=== PATIENT | male | born 1970 ===

== ENCOUNTER 2016-10-09 21:09 | Emergency (ER) | payer MEDICAID, OTHER ==
[~2016-10-09] VITALS: Ht 175.3 cm; Wt 90.0 kg
[~2016-10-09 21:09] MED LIST: AMLO10TA3 PO; ASPI325T32 PO; CLOP75TA28 PO; CYCL10TA9 PO; GABA300C PO; HYDR25TA4 PO; LIP40 PO; LISI40TA PO; METO100T3 PO; NITR0.4T6 SL; OXYC5TAB72 PO; PRAZ2CAP2 PO
[2016-10-09 21:17] VITALS: BP 202/104; PULSE 78; RESP 16; O2SAT 98
--- NOTE | 2016-10-09 21:51 | ED.REPORT ---
HPI-Extremity Problem Lower Date of Service Oct 09, 2016 ED Provider: Dr. Khadar Barfield D.O. A 46 year old male with a history of chronic lower back pain, hypertension, stroke, hyperlipidemia, and CAD s/p stent placement presents to the ED with a right ankle injury onset today. The patient slipped while holding a crab pot and dropped it on his foot. He fell onto his backside and reports lower back pain but denies hitting his head or losing consciousness. He was able to ambulate after the accident. Nursing Notes Stated Complaint: ANKLE PAIN Chief Complaint: Multiple Trauma/Fall Nursing Notes Reviewed: Yes Allergies: Coded Allergies: Sulfa (Sulfonamide Antibiotics) (Verified Allergy, Intermediate, Rash, ) Scheduled Amlodipine (Amlodipine) 10 Mg Tablet 10 MG PO ONCE Aspirin (Aspirin) 325 Mg Tabec 325 MG PO DAILY Atorvastatin (Lipitor) 40 Mg Tablet 40 MG PO HS Clopidogrel (Clopidogrel) 75 Mg Tablet 75 MG PO DAILY Gabapentin (Neurontin) 300 Mg Capsule 600 MG PO TID Hydrochlorothiazide (Hydrochlorothiazide) 25 Mg Tablet 12.5 MG PO DAILY Lisinopril (Lisinopril) 40 Mg Tablet 40 MG PO DAILY Metoprolol Tartrate (Metoprolol Tartrate) 100 Mg Tablet 50 MG PO BID Prazosin (Prazosin) 2 Mg Capsule 2 MG PO BID Scheduled PRN Cyclobenzaprine (Cyclobenzaprine) 10 Mg Tablet 10 MG PO TID PRN PRN Spasm oxyCODONE (oxyCODONE) 5 Mg Tablet 5 MG PO Q4H PRN PRN For Pain Miscellaneous Medications Nitroglycerin SL (Nitroglycerin SL) 0.4 Mg Tab.subl 0.4 MG SL General Time Seen by MD: 21:51 Chief Complaint Leg injury right Hx Obtained From: Patient Arrived By: Walk-in Onset Occurred: 5 - 8 hours ago Symptom Duration: Since onset Caused by: Accidental, Slipped Location: : Ankle right Quality: Painful Severity: Current: Moderate Severity: Maximum: Moderate Associated with: Denies: Fever, Loss of consciousness, Unable to walk Pertinent Negative: Relieved by nothing Immunizations: Unknown Recent Healthcare: No recent doctor visit Similar Sx Previous: No Past Medical History Past Medical History Notes: No blood thinners Chronic pain medication contract currently in place Past Medical History 1. Coronary artery disease. An acute lateral myocardial infarction in 2008. The patient had a PTCA to the occluded ramus. A stent placed and then a week later there was in-stent stenosis. He had a repeat PTCA and he has done fine ever since then with no major cardiac events up until this episode today. Ejection fraction at that time was 45%. Echocardiogram from February 07, 2011 showed LVH, EF 60% to 65%, unrevealing valves. Myocardial perfusion scan on September 27, 2010 showed a moderate-sized defect, fixed, mid-anterior wall without a reversible component. 2. Hypertension. 3. History of stroke. 4. Hyperlipidemia. 5. Cocaine use. 6. Left femur fracture with cindy placement. 7. Chronic lower back pain Past Surgical History Cardiac stents lower extremity surgery Family History Noncontributory Smoking History Former Smoker Social History The patient ahs history of cocaine abuse. He currently only uses THC. The patient was released from alf this morning (08/11/15) Alcohol Use: Denies alcohol use Drug Use: THC Other Social History: Local resident Ambulatory Status Independent Review of Systems Constitutional: Denies: Fever Musculoskeletal: Reports: Back pain (Lower), Joint pain (Right ankle) Neurologic: Denies: Change LOC, Headache, Problem walking Complete sys rev & neg: except as marked. Physical Exam Initial Vital Signs Vital Signs (First) Date Time Temp Pulse Resp B/P Pulse Ox O2 Delivery O2 Flow Rate FiO2 10/09/16 21:17 78 16 202/104 98 Room Air Initial VS: Reviewed Head / Eyes: Atraumatic, Normocephalic ENT: Conjunctiva normal, No scleral icterus Neck: Supple, Full range of motion Skin: Warm, Dry, No cyanosis Neurologic: Alert, Oriented, Nonfocal Psychiatric: Mood/affect normal, Behavior normal, Normal thought content Ankle / Foot: Full range of motion Right Ankle: Positive: Swelling present..., Tenderness present... (Laterally) General/Constitutional: Awake, Alert, No acute distress Interpretation & Diagnostics X-Ray Interpretation Xray Interpretation: No fracture Study Performed: 3 View X-Ray Ordered: Ankle right Interpretation / Wet Read by: Wet read ED physician Re-Eval/Medical Decision Med Decision/Clinical Course Mr. Rider was moderately hypertensive. He states this is from the pain. He is put in the ankle immobilizer and he felt better. Manual blood pressure came down 170 systolic. He will watch his blood pressure closely. Short course of opiates provided for pain and recommend close outpatient follow-up. He did not have any chest pain, shortness of breath, stroke symptoms or any signs or symptoms of malignant hypertension. Emergent lowering of asymptomatic high blood pressure not indicated Source of Hx: Old records Re-Evaluation/Progress : Time of Eval: 23:00 Patient Status: Condition improved Re-Evaluation/Progress Note: Discussed with patient x-ray results, diagnosis, and plan for discharge. Follow-up and return to the ER instructions given. Patient agrees with plan for care and all questions were addressed. Counseled Regarding: Diagnosis, Need for follow-up, When/why to return to ED Discharge & Departure Impression: Primary Impression: Ankle injury Encounter type: initial encounter Laterality: right Qualified Code: S99.911A - Unspecified injury of right ankle, initial encounter Disposition: Home Discharge Condition All VS Reviewed: Yes Condition: Stable Patient Instructions: Ankle Fracture (ED), Crutch Instructions (ED) Additional Instructions: I did not appreciate a fracture on your x-rays. An occult fracture may be present. Wear the side stirrup splint and use the crutches. Be nonweightbearing on your right ankle. You will follow up with your primary care physician in about a week. If the pain persists you will need to have repeat x-rays. Take 1-2 [place] every 6 hours as needed for severe pain. Do not drive or drink alcohol or consume acetaminophen while taking the [place]. Return if any problems or worsening symptoms. Referrals: Cristian Bennett DO (PCP) Matthieu Ballard MD Scribe Attestation Portions of this note were transcribed by Aparna Alex. I, Dr. Barfield, personally performed the history, physical exam, and medical decision-making; I reviewed and confirmed the accuracy of the information in the transcribed note. Signed by: Marybeth Leo, 10/10/2016, 00:44 copies to: Matthieu Ballard MD; Cristian Bennett Todd P DO Oct 09, 2016 21:51 APARNA ALEX Oct 09, 2016 21:56
[2016-10-09] MEDS ORDERED: _HYDROcodone/APAP 5-325 mg Tablet PO PRN (22:05)
[2016-10-09 23:45] VITALS: BP 193/125; PULSE 75; RESP 20; O2SAT 99
--- NOTE | 2016-10-10 09:06 | DRSVH ---
PROCEDURE: X-RAY RIGHT ANKLE, MINIMUM THREE VIEWS ([id number]) INDICATIONS: trauma TECHNIQUE: 3 views of the ankle were acquired. COMPARISON: None. FINDINGS: Bones: No fractures or dislocations. Ankle mortise is normally aligned. No suspicious bony lesions . Calcaneal spurring. Soft tissues: No tibiotalar joint effusion. Achilles tendon appears normal. Lateral malleolar soft tissue swelling. IMPRESSION: No displaced fracture seen. If there is continued pain, followup exam or additional dmitry ging such as MRI or CT could be performed for further assessment. Dictated by: Zaheer Philip Hemant Interpreted: Larissa Whittington MD on 10/10/2016 at 9:06 Transcribed by: HEIDY on 10/10/2016 at 9:06 Approved by: Larissa Whittington M.D. on 10/10/2016 at 16:10
== END 2016-10-10 00:07 ==
LOC: SED 21:09
DX: S99.911A Unspecified injury of right ankle, initial encounter (principal); W01.0XXA Fall on same level from slipping, tripping and stumbling without subsequent striking against object, initial encounter; W20.8XXA Other cause of strike by thrown, projected or falling object, initial encounter; Y92.814 Boat as the place of occurrence of the external cause; Y93.89 Activity, other specified; Y99.8 Other external cause status; M54.5 Low back pain; G89.29 Other chronic pain; I10 Essential (primary) hypertension; I25.10 Atherosclerotic heart disease of native coronary artery without angina pectoris; I25.2 Old myocardial infarction; E78.5 Hyperlipidemia, unspecified; Z86.73 Personal history of transient ischemic attack (TIA), and cerebral infarction without residual deficits; Z95.818 Presence of other cardiac implants and grafts; Z87.828 Personal history of other (healed) physical injury and trauma; Z87.891 Personal history of nicotine dependence; Z79.82 Long term (current) use of aspirin; Z88.2 Allergy status to sulfonamides

== ENCOUNTER 2016-10-26 01:06 | Emergency (ER) | payer MEDICAID, OTHER ==
[~2016-10-26] VITALS: Ht 175.3 cm; Wt 86.4 kg
[2016-10-26 01:09] VITALS: BP 192/104; PULSE 79; RESP 16; O2SAT 98
--- NOTE | 2016-10-26 01:25 | ED.REPORT ---
HPI-Extremity Problem Lower Date of Service Oct 26, 2016 ED Provider: Dr. Khadar Barfield D.O. A 46 year old male with a medical history including CAD, hypertension, and chronic back pain presents to the ED with a right ankle injury onset 2.5 weeks ago. The patient was boating when he dropped a crab pot on his ankle. The patient was seen in the ED at onset and was subsequently discharged with pain medication. His symptoms have not improved since. Nursing Notes Stated Complaint: RT ANKLE PAIN Chief Complaint: Extremity Trauma Nursing Notes Reviewed: Yes Allergies: Coded Allergies: Sulfa (Sulfonamide Antibiotics) (Verified Allergy, Intermediate, Rash, 10/26) Scheduled Amlodipine (Amlodipine) 10 Mg Tablet 10 MG PO ONCE Aspirin (Aspirin) 325 Mg Tabec 325 MG PO DAILY Atorvastatin (Lipitor) 40 Mg Tablet 40 MG PO HS Clopidogrel (Clopidogrel) 75 Mg Tablet 75 MG PO DAILY Gabapentin (Neurontin) 300 Mg Capsule 600 MG PO TID Hydrochlorothiazide (Hydrochlorothiazide) 25 Mg Tablet 12.5 MG PO DAILY Lisinopril (Lisinopril) 40 Mg Tablet 40 MG PO DAILY Metoprolol Tartrate (Metoprolol Tartrate) 100 Mg Tablet 50 MG PO BID Prazosin (Prazosin) 2 Mg Capsule 2 MG PO BID Scheduled PRN Cyclobenzaprine (Cyclobenzaprine) 10 Mg Tablet 10 MG PO TID PRN PRN Spasm oxyCODONE (oxyCODONE) 5 Mg Tablet 5 MG PO Q4H PRN PRN For Pain Miscellaneous Medications Nitroglycerin SL (Nitroglycerin SL) 0.4 Mg Tab.subl 0.4 MG SL General Time Seen by MD: 01:25 Chief Complaint Ankle injury right Hx Obtained From: Patient Arrived By: Walk-in Onset Occurred: More than a week ago... (2.5 weeks) Symptom Duration: Since onset Caused by: Accidental Location: : Ankle right Quality: Painful Severity: Current: Moderate Severity: Maximum: Moderate Associated with: Denies: Fever Pertinent Negative: Relieved by nothing Immunizations: Unknown Recent Healthcare: Recent doctor visit Similar Sx Previous: Yes Past Medical History Past Medical History Notes: No blood thinners Chronic pain medication contract currently in place Past Medical History 1. Coronary artery disease. An acute lateral myocardial infarction in 2008. The patient had a PTCA to the occluded ramus. A stent placed and then a week later there was in-stent stenosis. He had a repeat PTCA and he has done fine ever since then with no major cardiac events up until this episode today. Ejection fraction at that time was 45%. Echocardiogram from February 07, 2011 showed LVH, EF 60% to 65%, unrevealing valves. Myocardial perfusion scan on September 27, 2010 showed a moderate-sized defect, fixed, mid-anterior wall without a reversible component. 2. Hypertension. 3. History of stroke. 4. Hyperlipidemia. 5. Cocaine use. 6. Left femur fracture with cindy placement. 7. Chronic lower back pain Past Surgical History Cardiac stents lower extremity surgery Family History Noncontributory Smoking History Former Smoker Social History The patient has history of cocaine abuse. He currently only uses THC. The patient was released from senior living this morning (08/11/15) Alcohol Use: Denies alcohol use Drug Use: THC Other Social History: Local resident Ambulatory Status Independent Physical Exam Physical Exam Notes: Initial Vital Signs Vital Signs (First) Date Time Temp Pulse Resp B/P Pulse Ox O2 Delivery O2 Flow Rate FiO2 10/26/16 01:09 36.4 79 16 192/104 98 Room Air Initial VS: Reviewed Head / Eyes: Atraumatic, Normocephalic ENT: Conjunctiva normal, No scleral icterus Neck: Supple, Full range of motion Skin: Warm, Dry, No cyanosis Neurologic: Alert, Oriented, Nonfocal Psychiatric: Mood/affect normal, Behavior normal, Normal thought content Lower Extremity / Pelvis / MS: Non-tender, Neurologic intact, Vascular intact Ankle / Foot: Neurologic intact, Vascular intact (Strong DP and PT pulses) Right Ankle: Positive: Swelling present... (Soft tissue over lateral malleolus) , Tenderness present... Interpretation & Diagnostics X-Ray Interpretation Xray Interpretation: No fracture Study Performed: 3-View X-Ray Ordered: Ankle right Re-Eval/Medical Decision Med Decision/Clinical Course Mild soft tissue swelling over the lateral ankle with moderate tenderness. Repeat x-ray still did not show definitive fracture. I will place Mr. Rider in a cast boot and have him use crutches. He was given a 20 tablet prescription of Pomaria with the understanding that I could not refill this and that he needs to see primary care or orthopedics if he is having the need for ongoing pain control. He was given a dose of clonidine which brought his blood pressure down to what he thinks is his baseline. His high blood pressure is essentially asymptomatic. He tells me he can fill his medications tomorrow. I strongly recommend that he do that. Routine opiate warnings were given. Source of Hx: Old records Re-Evaluation/Progress : Time of Eval: 02:00 Patient Status: Condition improved Re-Evaluation/Progress Note: Discussed with patient x-ray results, diagnosis, and plan for discharge. Follow-up and return to the ER instructions given. Patient agrees with plan for care and all questions were addressed. Counseled Regarding: Diagnosis, Need for follow-up, When/why to return to ED Discharge & Departure Impression: Primary Impression: Ankle injury Encounter type: subsequent encounter Laterality: right Qualified Code: S99.911D - Unspecified injury of right ankle, subsequent encounter Additional Impression: High blood pressure Hypertension type: essential hypertension Hypertension goal: less than 130/ 85 Qualified Code: I10 - Essential (primary) hypertension Disposition: Home Discharge Condition All VS Reviewed: Yes Condition: Stable Patient Instructions: Ankle Sprain (ED), Chronic Hypertension (ED) Additional Instructions: Thank you for entrusting us with your care. Your x-ray was normal with no fracture. Wear the walking boot for the next week. Do not drink alcohol or drive tonight as you have been given sedating medication. 1-2 Pomaria every six hours as needed for pain. Do not drink alcohol, drive, or consume acetaminophen while taking Pomaria. I cannot refill these opiates so it is important you are seen in follow-up by primary care. Call your primary care provider or referral orthopedist on Sunday for a follow- up appointment. Your blood pressure is out of control. You need to get your medication filled tomorrow. Return to the ER with any new or worsening symptoms. Referrals: Cristian Bennett DO (PCP) Armani Hutson Attestation Portions of this note were transcribed by Aparna Alex. I, Dr. Barfield, personally performed the history, physical exam, and medical decision-making; I reviewed and confirmed the accuracy of the information in the transcribed note. Signed by: Marybeth Leo, 10/26/2016, 02:31 copies to: Armani Hutson DO; Cristian Bennett Todd P DO Oct 26, 2016 01:25 APARNA ALEX Oct 26, 2016 01:58
[2016-10-26] MEDS ORDERED: _HYDROcodone/APAP 5-325 mg Tablet PO PRN (01:35)
[2016-10-26] MEDS ORDERED: cloNIDine 0.1 mg Tablet PO ONE (01:35)
[2016-10-26 02:30] VITALS: BP 168/106; PULSE 76; RESP 18; O2SAT 98
[2016-10-26 02:39] VITALS: BP 168/106; PULSE 76; RESP 18; O2SAT 98
--- NOTE | 2016-10-26 10:01 | DRSVH ---
PROCEDURE: X-RAY RIGHT ANKLE, MINIMUM THREE VIEWS ([id number]) INDICATIONS: ankle injury, not improving, lateral swelling TECHNIQUE: 3 views of the ankle were acquired. COMPARISON: [facility], CR, XR ANKLE 3VW RT, 10/09/2016, 22:23. FINDINGS: Bones: No fractures or dislocations. Ankle mortise is normally aligned. No suspicious bony lesions . Calcaneal spurring. Soft tissues: No tibiotalar joint effusion. Achilles tendon appears normal. IMPRESSION: No definite radiographic abnormality. Dictated by: Zaheer Philip [facility] Interpreted: Leona Sewell MD on 10/26/2016 at 10:00 Transcribed by: GLEN on 10/26/2016 at 10:01 Approved by: Leona Sewell MD, PhD on 10/26/2016 at 16:25
== END 2016-10-26 02:40 | disposition home or self-care (01) ==
LOC: SED 01:06
DX: S99.911A Unspecified injury of right ankle, initial encounter (principal); W20.8XXA Other cause of strike by thrown, projected or falling object, initial encounter; Y92.814 Boat as the place of occurrence of the external cause; Y93.89 Activity, other specified; Y99.8 Other external cause status; I10 Essential (primary) hypertension; I25.10 Atherosclerotic heart disease of native coronary artery without angina pectoris; M54.9 Dorsalgia, unspecified; G89.29 Other chronic pain; I25.2 Old myocardial infarction; E78.5 Hyperlipidemia, unspecified; Z95.818 Presence of other cardiac implants and grafts; Z86.73 Personal history of transient ischemic attack (TIA), and cerebral infarction without residual deficits; Z87.891 Personal history of nicotine dependence; Z79.82 Long term (current) use of aspirin; Z88.2 Allergy status to sulfonamides

== ENCOUNTER 2016-11-07 00:45 | Inpatient (IN) | payer MEDICAID, OTHER ==
[2016-11-07] VITALS (14 sets, daily range): BP systolic 146–214; BP diastolic 91–128; PULSE 62–85; RESP 13–17; O2SAT 97–100
[~2016-11-07] VITALS: Ht 175.3 cm; Wt 86.5 kg
--- NOTE | 2016-11-07 01:05 | ED.REPORT ---
HPI-Chest Pain 40 and Over Date of Service Nov 07, 2016 ED Provider: Hebert Acharya MD Patient is a 46 year old male with a history of previous UT and stroke who presents to the ED complaining of left sided, intermittent chest tightness onset 3 days ago. Associated symptoms include nausea and vomiting last night and neck spasms. He denies SOB, diaphoresis, or any other symptoms. He has a history of back and neck spasms. Patient reports he has been out of his blood pressure medication for about 1 week. Nursing Notes Stated Complaint: CHEST PAIN/BACK PAIN Chief Complaint: Chest Pain Nursing Notes Reviewed: Yes Allergies: Coded Allergies: Sulfa (Sulfonamide Antibiotics) (Verified Allergy, Intermediate, Rash, ) Scheduled Amlodipine (Amlodipine) 10 Mg Tablet 10 MG PO ONCE Aspirin (Aspirin) 325 Mg Tabec 325 MG PO DAILY Atorvastatin (Lipitor) 40 Mg Tablet 40 MG PO HS Clopidogrel (Clopidogrel) 75 Mg Tablet 75 MG PO DAILY Gabapentin (Neurontin) 300 Mg Capsule 600 MG PO TID Hydrochlorothiazide (Hydrochlorothiazide) 25 Mg Tablet 12.5 MG PO DAILY Lisinopril (Lisinopril) 40 Mg Tablet 40 MG PO DAILY Metoprolol Tartrate (Metoprolol Tartrate) 100 Mg Tablet 50 MG PO BID Prazosin (Prazosin) 2 Mg Capsule 2 MG PO BID Scheduled PRN Cyclobenzaprine (Cyclobenzaprine) 10 Mg Tablet 10 MG PO TID PRN PRN Spasm oxyCODONE (oxyCODONE) 5 Mg Tablet 5 MG PO Q4H PRN PRN For Pain Miscellaneous Medications Nitroglycerin SL (Nitroglycerin SL) 0.4 Mg Tab.subl 0.4 MG SL General Time Seen by MD: 01:03 Chief Complaint Chest pain Hx Obtained From: Patient Arrived By: Walk-in Sudden in Onset?: Yes Onset Occurred: 3 days ago Symptom Duration: Since onset Risk Factors )( CAD Risk Stratification Known CAD Risk factors N/A )( TAD Risk Stratification HypertensionNo Pre-exist aortic aneurysm Risk factors reviewed )( PE Risk Stratification No Previous DVT, No Previous PE Risk factors reviewed Past Medical History Past Medical History Notes: No blood thinners Chronic pain medication contract currently in place Past Medical History 1. Coronary artery disease. An acute lateral myocardial infarction in 2008. The patient had a PTCA to the occluded ramus. A stent placed and then a week later there was in-stent stenosis. He had a repeat PTCA. Ejection fraction at that time was 45%. Echocardiogram from February 07, 2011 showed LVH, EF 60% to 65%, unrevealing valves. Myocardial perfusion scan on September 27, 2010 showed a moderate-sized defect, fixed, mid-anterior wall without a reversible component. 2. Hypertension. 3. History of stroke. 4. Hyperlipidemia. 5. Cocaine use. 6. Left femur fracture with cindy placement. 7. Chronic lower back pain Past Surgical History Cardiac stents lower extremity surgery Family History Noncontributory Smoking History Former Smoker Social History The patient has history of cocaine abuse. He currently only uses THC. The patient has a history of incarceration (08/11/15) Alcohol Use: Denies alcohol use Drug Use: THC Other Social History: Local resident Ambulatory Status Independent Review of Systems Respiratory: Denies: Shortness of breath Cardiovascular: Reports: Chest pain GI: Reports: Nausea, Vomiting Musculoskeletal: Reports: Neck pain Skin: Denies Diaphoresis Complete sys rev & neg: except as marked. Physical Exam Initial Vital Signs Vital Signs (First) Date Time Temp Pulse Resp B/P Pulse Ox O2 Delivery O2 Flow Rate FiO2 11/07/16 00:47 36.6 85 16 195/103 100 Room Air Head / Eyes: Atraumatic, Normocephalic Skin: Warm, Dry Neurologic: Alert, Oriented, Nonfocal Psychiatric: Mood/affect normal, Behavior normal, Normal thought content General/Constitutional: Awake, Alert, Well developed Respiratory / Chest: Breath sounds NL, Breath sounds = bilat, No respiratory distress Cardiovascular: Heart rate NL, Regular rhythm, Heart sounds NL Abdomen: Soft, Non-tender Neck: No swelling Mild tenderness Interpretation & Diagnostics Lab Results Interpretation Result Diagram: 11/07/16 0112 11/07/16 0112 Test 11/07/16 01:12 11/07/16 03:30 White Blood Count 5.5th/mm3 (3.8-10.1) Red Blood Count 4.37mil/mm3 (4.40-5.80) Hemoglobin 13.4g/dL (13.8-17.2) Hematocrit 38.9% (41.0-50.0) Mean Corpuscular Volume 89.0fL (81-100) Mean Corpuscular Hemoglobin 30.7pg (27.0-35.0) Mean Corpuscular Hemoglobin Concent 34.4% (32.0-37.0) Red Cell Distribution Width 12.7% (12.3-15.4) Platelet Count 209bil/L (150-400) Neutrophils (%) (Auto) 46.8% (40-74) Lymphocytes (%) (Auto) 34.6% (14-46) Monocytes (%) (Auto) 12.6% (4-12) Eosinophils (%) (Auto) 5.3% (0-5) Basophils (%) (Auto) 0.5% (0-3) Prothrombin Time 10.2sec (8.1-12.5) Prothromb Time International Ratio 0.95ratio Activated Partial Thromboplast Time 27.8sec (22.8-33.0) D-Dimer < 0.5mg/L (<0.50) Sodium Level 136mEq/L (134-144) Potassium Level 3.3mEq/L (3.5-5.2) Chloride Level 100mEq/L (97-108) Carbon Dioxide Level 21mmol/L (18-29) Blood Urea Nitrogen 17mg/dL (6-24) Creatinine 1.12mg/dL (0.76-1.27) Estimat Glomerular Filtration Rate 75mL/min (>59) Glucose Level 117mg/dL (60-99) Calcium Level 8.3mg/dL (8.5-10.1) Magnesium Level 2.0mg/dL (1.6-2.6) Total Bilirubin 0.4mg/dL (0.0-1.2) Aspartate Amino Transf (AST/SGOT) 16U/L (0-50) Alanine Aminotransferase (ALT/SGPT) 19U/L (0-44) Alkaline Phosphatase 64U/L (25-150) Pro-B-Type Natriuretic Peptide 167pg/mL (0-121) Total Protein 7.4g/dL (6.4-8.4) Albumin 4.1g/dL (3.4-5.0) Hold Dhaliwal Top Tube Received (Received) Troponin T 0.010ug/L (0.0-0.011) Triglycerides Level 208mg/dL (0-149) Cholesterol Level 140mg/dL (100-199) LDL Cholesterol, Calculated 70.400mg/dL (0-99) VLDL Cholesterol 41.600mg/dL HDL Cholesterol 28mg/dL (>39) Cholesterol/HDL Ratio 5.00 (0.0-4.4) ECG Interpretation ECG Interpretation: Sinus rate 81 Ventricular premature complex LNH with secondary repolarization abnormality Time: 01:01 Interpreted by: ED physician ECG Interpretation: Sinus rate 72 LVH Time: 01:42 Interpreted by: ED physician X-Ray Chest Interpretation Chest Xray Interpretation: No new abnormalities View: Portable, 1 view Interpretation / Wet Read by: Interpret - ED physician Re-Eval/Medical Decision Med Decision/Clinical Course 46-year-old with prior UT and stroke presents with chest pain radiating from neck down onto anterior chest, but marked hypertension. He notes he ran out of his hypertension meds more than a week ago. His blood pressure is not at all been responsive to IV metoprolol, and is slowly coming under control with IV nitroglycerin. Pain is been relieved with morphine low-dose Ativan and nitrates. He has LVH on his EKG, no acute infarction changes but inferior sagging consistent with ischemia. X-rays unremarkable. Admitted now to the ICU with chest pain and hypertensive urgency. Time of Eval: 03:15 Re-Evaluation/Progress Note: Discussed need for admission. Patient understands and agrees with plan. All questions addressed at this time. Consultation : Referral / Consult Name: Kim Alicea DO Consulted With: Hospitalist Call Returned at: 03:33 Criminal Justice Teacher: Will see patient, Agrees with eval, Agrees with plan, Accepts admit Note: Discussed patient's case. Accepts admit. Counseled Regarding: Diagnosis, Lab results, Need for admission Discharge & Departure Shift Change Sign-Out Response to Therapy: Improved Primary Impression: Chest pain Additional Impressions: Hypertensive emergency CAD (coronary artery disease) History of acute myocardial infarction S/P coronary artery stent placement Disposition: ADMITTED TO HOSPITAL Discharge Condition All VS Reviewed: Yes Condition: Critical Referrals: Cristian Bennett DO (PCP) Crit Care Except Billable Proc Time Spent: 30-74 minutes (thirty minutes) Services Performed: Patient management by me, Time spent at bedside, Reviewing test results, Reviewing imaging, Discussing patient care, Documentation in record Scribe Attestation Portions of this note were transcribed by Tina Salazar. I, Dr. Acharya personally performed the history, physical exam and medical decision-making; I reviewed and confirmed the accuracy of the information in the transcribed note. Signed by: Tina Salazar 11/07/16, [id number] copies to: Cristian Bennett Christopher W MD Nov 07, 2016 01:04 TINA SALAZAR Nov 07, 2016 01:34
[2016-11-07] MEDS ORDERED: 0.9% Sodium Chloride 1,000 ML IV ONE (01:22)
[2016-11-07] MEDS ORDERED: Pantoprazole 4 mg/mL 10 mL Inj IVPUSH ONE (01:25)
[2016-11-07 01:30] LABS: BASOPHILS % (AUTO) 0.5 % (0-3); EOSINOPHILS % (AUTO) 5.3 % (0-5); MONOCYTES % (AUTO) 12.6 % (4-12); Mean Corpuscular Hemoglobin 30.7 pg (27.0-35.0); NEUTROPHILS % (AUTO) 46.8 % (40-74); Platelet Count 209 bil/L (150-400)
[2016-11-07 01:53] LABS: D-DIMER < 0.5 mg/L (<0.50); INR 0.95 ratio
[2016-11-07 01:58] LABS: TROPONIN T 0.01 ug/L (0.0-0.011)
[2016-11-07] MEDS: Nitroglycerin 50 mg/250 mL D5W 50,000 MCG in IV Premix 1 EACH IV SCH (03:21)
[2016-11-07] MEDS ORDERED: Alum-Mag Hydrox-Simeth 30 mL Suspension PO PRN ×2 (03:45→04:15)
[2016-11-07] MEDS ORDERED: Ondansetron 2 mg/mL 2 mL Inj IVPUSH PRN ×2 (03:45→04:15)
[2016-11-07] MEDS ORDERED: Polyethylene Glycol (PEG) 17 Gm Powder PO PRN ×2 (03:45→04:15)
[2016-11-07] MEDS ORDERED: Senna-Docusate 8.6-50 mg Tablet PO PRN (03:45)
[2016-11-07] MEDS ORDERED: Potassium Chloride 20 mEq SR Tablet PO ONE (05:04)
--- NOTE | 2016-11-07 05:14 | PCM.HPMED ---
Subjective Date of Service Nov 07, 2016 Primary Provider: Admitting Physician: Kim Alicea DO Primary Care Physician: Nopcp Attending Physician: Kim Alicea DO Chief Complaint: Chest pain History of Present Illness: Patient is a 46-year-old male with CAD s/p PCI, CVA, hypertension and dyslipidemia presenting with left sided chest pain. Patient reports onset of chest pain about three days ago and describes it as an intermittent "tight, tense, throbbing and pressure-like" pain. Patient says the pain is exacerbated by exertion and relieved some with hot bath and Vicodin that he had leftover from previous prescription. Patient states he has been out of all his medications for about the past week as he currently doesn't have a PCP and does not have any refill on his medications. Patient reports associated diaphoresis, nausea and emesis with last episode of emesis the day prior to admit. He also endorses what feels like left neck muscle spasms with his chest pain. Patient otherwise denies shortness of breath, lightheadedness, dizziness, acute vision changes. Patient states his roommate brought him into [facility] ED for further evaluation after noticing the patient. Patient denies similar pain in the past. At time of visit, the patient reports improvement in his chest pain. In the ED, vitals: temp 36.6, HR 85, RR 16 satting 100% on room air, BP 195/ 103. Labs: Pro-BNP 167, troponin<0.010, d-dimer<0.05. Patient started on a nitro gtt in the ED. Review of Systems: A comprehensive review of systems was conducted with the patient and found to be negative except as above in the History of Present Illness. Allergies Coded Allergies: Sulfa (Sulfonamide Antibiotics) (Verified Allergy, Intermediate, Rash, ) Home Medications [facility]; however, this needs reconciliation with the pharmacy ASA 325mg daily Atenolol 50mg BID Lisinopril 20mg daily Methocarbamol 750mg QID SL nitroglycerin 0.4mg Q5min PRN Norvasc 10mg daily Simvastatin 40mg daily PMH 1. Coronary artery disease. An acute lateral myocardial infarction in 2008. The patient had a PTCA to the occluded ramus. A stent placed with subsequent in -stent stenosis after one week. He had a repeat PTCA. Ejection fraction at that time was 45%. Echocardiogram from February 07, 2011 showed LVH, EF 60% to 65%, unrevealing valves. Myocardial perfusion scan on September 27, 2010 showed a moderate-sized defect, fixed, mid-anterior wall without a reversible component. 2. Hypertension. 3. History of stroke. 4. Hyperlipidemia. 5. History of cocaine use. 6. Left femur fracture with cindy placement. 7. Chronic lower back pain . Surgical History PCI Left femur repair Family History Patient does not know mother or father's health history Social History Occupation: Housecleaner Floor Hx Alcohol Use: No Hx Substance Use: Yes (Marijuana daily. Former cocaine user (quit 6 years ago)) Hx Tobacco Use: No Smoking Status: Former Smoker (Quit 5 years ago) Living Arrangement: with Friends/Roommate Exam Vital Signs Vital Sign - Last Date Time Temp Pulse Resp B/P Pulse Ox O2 Delivery O2 Flow Rate FiO2 11/07/16 04:00 156/109 11/07/16 00:47 36.6 85 16 100 Room Air Intake and Output 11/06/16 11/06/16 11/07/16 Cumulative From/Thru 15:00 23:00 07:00 11/07/16 00:47 - 11/07/16 04:49 Intake Total 1000 ml 1000 ml Output Total 60 ml 60 ml Balance 940 ml 940 ml Intake IV Total 1000 ml 1000 ml Output Urine Total 60 ml 60 ml # Voids 1 1 Exam General: No acute distress, well-developed, well-nourished, appropriately interactive HEENT: Normocephalic, atraumatic. External ears without defect. Pupils equal, round, and reactive to light. Anicteric sclerae, moist conjunctivae, and no lid lag. Oropharynx free of erythema and cobble stoning with moist mucosa. Neck: Supple. No lymphadenopathy or thyromegaly. Cardiovascular: Regular rate and rhythm with no murmurs, rubs, or gallops appreciated Pulmonary: Clear to auscultation bilaterally with no crackles, wheezes, or rhonchi. Normal respiratory effort with no use of accessory muscles. Abdomen: Bowel tones present. Soft, nontender, nondistended. Extremities: No clubbing, cyanosis, edema, or lymphadenopathy appreciated. Skin: Normal temperature, turgor, and texture; no rash, ulcers, or subcutaneous nodules appreciated. Neurological: Cranial nerves grossly intact. No known gait impairment. Psychiatric: Normal mood and affect. Alert and oriented to person, place, and time. Lab and Diagnostics Result Diagram: 11/07/1611111/07/16111 Assessment & Plan Patient is a 46-year-old male with CAD s/p PCI, CVA, hypertension and dyslipidemia presenting with left sided chest pain and admitted for hypertensive emergency. 1. Hypertensive emergency, acute. Present on admission. Active -BP 195/103 with chest pain and vomiting -Nitroglycerin gtt -Will need to reinstitute and provide prescriptions for antihypertensive regimen prior to discharge 2. Acute chest pain. Present on admission. Improving -Likely due to #1 above -Troponin<0.010. Trend -Telemetry -Morphine PRN 3. CAD, chronic. Present on admission -Continue ASA, 4. Dyslipidemia, chronic. Present on admission -Lipid panel pending -Continue home dose statin 5. Hypertension, chronic. Present on admission -Patient out of medications over the past week -See #1 above 6. Chronic pain. Present on admission -Follow clinically Patient Status: Patient is admitted under inpatient status with expected length of stay greater than 2 midnights due to severity of presenting symptoms, risk of adverse event, and complexity of treatment plan. VTE Prophylaxis: Sub-Q Heparin (Unfractionated) Resuscitation Status: CPR: Attempt Resuscitation Attending Statement The patient was seen and examined together with house staff on 11/07/2016 and I agree with the history, exam and plan as outlined in the note above. Donell Benson DO Nov 07, 2016 05:14 Kim Alicea DO Nov 07, 2016 05:28
--- NOTE | 2016-11-07 06:23 | NUR ---
admit note admit info done per pt and recall and chart info, pt a/o times three, ej, coop, pleasant, pt c/o chronic back pain up to 8/10, pt c/o mid sternal chest pain, sl worse with palpation and worse with deep breath, ekg done, paged md with results, troponin negative times two, 2mg morphine given for pain, pt states his pain decreased to 4/10 and went to sleep, ntg gtt 15-20mcg/min, goal bp 180/90's per md verbal orders, pt states he hasn't taken his home meds for approx one week, md aware, voiding well per urinal, denies n/v tele- sr/sb, kcl po given, recheck scheduled for 1000 denies sob, ls-clear, ra sats upper 90's, see admit charting and ccu flow sheet, pt asked to have his family bring his med list, med rec left for day shift, pt asked to have family take his advanced directive in also,
[2016-11-07] MEDS: Heparin 5,000 Unit/mL Inj SUBQ SCH ×2 (08:53→16:30)
--- NOTE | 2016-11-07 10:28 | DRSVH ---
PROCEDURE: X-RAY CHEST ONE VIEW, PORTABLE ([id number]) INDICATIONS: chest pain TECHNIQUE: One view of the chest was acquired. COMPARISON: [facility], CR, XR CHEST 1VW (PORTABLE), 08/11/2015, 9:29. FINDINGS: Surgical changes and devices: None. Lungs and pleura: No pleural effusions or pneumothorax. Lungs are clear. Mediastinum: Mediastinal contours appear normal. Heart size is normal. Bones and chest wall: No suspicious bony lesions. Overlying soft tissues appear unremarkable. IMPRESSION: No acute cardiopulmonary disease. Dictated by: Zaheer GEORGE Interpreted: Tuan Middleton MD on 11/07/2016 at 10:27 Transcribed by: BLAISE on 11/07/2016 at 10:28 Approved by: Wisam Middleton M.D. on 11/07/2016 at 16:21
--- NOTE | 2016-11-07 15:12 | PCM.PNMED ---
Subjective Date of Service Nov 07, 2016 Subjective Overnight: Patient admitted overnight in stable condition, on nitro gtt for chest pain. Today: States he feels well, admits to some dull chest pain, localized to left chest; pain reproduced with palpation. Tolerating nitro gtt well. BP still elevated at 157/110 at time of examination. Tolerating po intake well. Denies severe pain, nausea, vomiting. Admits to dismissal from previous PCP clinic. Admits to not having medications over recent week, and does not currently have PCP. Exam Vital Signs Vital Sign - Last Date Time Temp Pulse Resp B/P Pulse Ox O2 Delivery O2 Flow Rate FiO2 11/07/16 12:00 36.5 63 16 179/93 100 Room Air Intake and Output 11/06/16 11/06/16 11/07/16 Cumulative From/Thru 15:00 23:00 07:00 11/07/16 00:47 - 11/07/16 05:59 Intake Total 1252 ml 1252 ml Output Total 410 ml 410 ml Balance 842 ml 842 ml Intake Oral 240 ml 240 ml IV Total 1012 ml 1012 ml Output Urine Total 410 ml 410 ml # Voids 1 1 # Bowel Movements 0 0 Exam General: AAOx3; pleasant and cooperative; no acute distress HEENT: Atraumatic, sclera anicteric, external ears without defect; mucus membranes moist Cardiac: Increased rate in 90s, regular rhythm at time of examination; no murmurs appreciated Respiratory: Adequate air flow all robison; no coarse sounds or wheeze appreciated Chest: No obvious signs trauma; no erythema or ecchymosis; pain to palpation along left sternal border and extending to axilla of entire left breast region; no pain on right Abdomen: Soft, nondistended, nontender Extremities: No edema MSK: 4/4 extremities exhibit 5/5 strength Neuro: CNII-XII grossly intact, speech without slur; facial expressions symmetric Psych: Appropriate mood, affect, and responses to questioning; good insight and judgment Lab and Diagnostics Result Diagram: 11/07/16 0112 11/07/16 1026 X-Rays, CTs and MRIs PROCEDURE: X-RAY CHEST ONE VIEW, PORTABLE ([id number]) INDICATIONS: chest pain TECHNIQUE: One view of the chest was acquired. COMPARISON: [facility], CR, XR CHEST 1VW (PORTABLE), 08/11/2015, 9: 29. FINDINGS: Surgical changes and devices: None. Lungs and pleura: No pleural effusions or pneumothorax. Lungs are clear. Mediastinum: Mediastinal contours appear normal. Heart size is normal. Bones and chest wall: No suspicious bony lesions. Overlying soft tissues appear unremarkable. IMPRESSION: No acute cardiopulmonary disease. Dictated by: Zaheer Philip RRA Interpreted: Tuan Middleton MD on 11/07/2016 at 10: 27 Transcribed by: BLAISE on 11/07/2016 at 10:28 Approved by: Wisam Middleton M.D. on 11/07/2016 at 16:21 Assessment & Plan Patient is a 46-year-old gentleman with CAD s/p PCI, CVA, hypertension, and dyslipidemia, that presented to [facility] with left sided chest pain. He was admitted for evaluation and treatment of hypertensive emergency and chest pain monitoring. - Hospital day 1 Hypertensive emergency, acute. Present on admission. Active -BP 195/103 with chest pain and vomiting -Nitroglycerin gtt initiated in ED; decrease as tolerated - Meds ordered on admit: Atenolol 50 BID, ASA 81 daily, atorvastatin 40mg nightly, lisinopril 20mg daily - Reinstate home medications when reconciliation completed - Labetalol 5-10mg IV push q4h prn BP sys > 170, yeison > 110 for greater than 15 minutes Acute chest pain. Present on admission. Ongoing with improvements -Suspect to be secondary to recent trauma/muscle strain vs ACS -Troponin negative x2, continue to trend -Telemetry -Morphine PRN Costochondritis, acute, present on admission. Ongoing - Pain with palpation to left sternal region and left chest - Patient reports increase in activity and recent impact with crabbing pot hit to chest - Toradol 30mg IV q6h - Ice packs and re-assurance - XR cervical and thoracic spine to eval underlying injury CAD, chronic. Present on admission -Continue ASA -Resume home meds when verified Dyslipidemia, chronic. Present on admission -Lipid panel 11/07: total chol 140, LDL 70, HDL 28, TG 208 -Continue home dose statin when verified Hypertension, chronic. Not well controlled -Patient out of medications over the past week -See #1 above - Patient will need hospital FU appt with a provider - Will supply one month script for cardiac meds at DC - Will not provide pain medication Rx at DC Chronic pain. Presumed stable -Follow clinically - DVT: Hep q8 - GI: None - PRN fever/pain/antiemetics/bowel - Diet: Heart healthy - Code: FULL CODE - Time spent: Approximately 40 minutes were spent on patient case; greater than 50% of time spent on coordination of care and counseling. Dispo: Likely to remain additional 1-2 days pending stability of BP and medication regimen development. Will prescribe approx one month of cardiac meds at DC; no assisted narcotics will be provided. Patient will need to establish with new PCP, and find a location for hospital FU. Pain Evaluation: Adequate Pain Control GI Prophylaxis: Not indicated VTE Prophylaxis: Sub-Q Heparin (Unfractionated) Resuscitation Status: CPR: Attempt Resuscitation Attending Statement Patient was seen and examined. I have reviewed the patient's chart and discussed the case at length with Dr. Michelle Vazquez. I agree with the above note. Mary Ellen Vazquez DO Nov 07, 2016 14:58 Hebert uLndy MD Nov 07, 2016 19:27
[2016-11-07] MEDS ORDERED: GABA600T2 PO (15:26)
[2016-11-07] MEDS: Labetalol 5 mg/mL 4 mL Inj IVPUSH PRN (18:37)
--- NOTE | 2016-11-07 18:45 | NUR ---
BP/nitro gtt Pt's BP remained elevated intermittently throughout shift. Was able to titrate off nitro gtt once amlodipine given but around 1830, BP up in the 190s systolic and 100s diastolic. Gave 10mg PRN labetolol, TELE SR 60s-70s. Report passed to oncoming RN. Monitor set to take BP q5m during and after labetolol given. Pt independent in bed, A&O x3, stable on RA. Downgraded to PCC this evening.
--- NOTE | 2016-11-07 21:46 | DRSVH ---
PROCEDURE: X-RAY THORACIC SPINE, 2 VIEWS INDICATIONS: pain TECHNIQUE: 3 views of the thoracic spine were acquired. COMPARISON: None. FINDINGS: Bones: No fractures or dislocations. No suspicious bony lesions. Wells pairs of ribs are noted, and appear intact where visualized. Soft tissues: No paravertebral stripe thickening. IMPRESSION: No acute radiographic findings. Dictated by: Angelica Voss M.D. on 11/07/2016 at 21:38 Approved by: Angelica Voss M.D. on 11/07/2016 at 21:45
--- NOTE | 2016-11-07 21:47 | DRSVH ---
PROCEDURE: X-RAY CERVICAL SPINE, 2 OR 3 VIEWS INDICATIONS: pain TECHNIQUE: 3 view(s) of the cervical spine were acquired. COMPARISON: None. FINDINGS: Bones: No fractures or dislocations to the C7 level. The lateral masses of C1 appear intact on the odontoid view. No suspicious bony lesions. Soft tissues: No prevertebral soft tissue swelling. IMPRESSION: No acute radiographic findings. Dictated by: Angelica Voss M.D. on 11/07/2016 at 21:45 Approved by: Angelica Voss M.D. on 11/07/2016 at 21:46
[2016-11-08] MEDS: Heparin 5,000 Unit/mL Inj SUBQ SCH ×2 (00:07→08:43)
[2016-11-08 00:08] VITALS: BP 131/85; PULSE 71; RESP 17; O2SAT 100
[2016-11-08] MEDS: Nitroglycerin 50 mg/250 mL D5W 50,000 MCG in IV Premix 1 EACH IV SCH (03:10)
[2016-11-08 04:24] VITALS: BP 151/90; PULSE 68; RESP 18; O2SAT 100
[2016-11-08 06:09] LABS: BASOPHILS % (AUTO) 0.3 % (0-3); EOSINOPHILS % (AUTO) 3.6 % (0-5); MONOCYTES % (AUTO) 8.7 % (4-12); Mean Corpuscular Hemoglobin 30.1 pg (27.0-35.0); Mean Corpuscular Volume 89.5 fL (81-100); NEUTROPHILS % (AUTO) 59.8 % (40-74); Platelet Count 199 bil/L (150-400)
[2016-11-08 06:27] LABS: Magnesium 2.2 mg/dL (1.6-2.6); Phosphorus 2.9 mg/dL (2.5-4.9)
[2016-11-08 08:30] VITALS: BP 196/118; PULSE 59; RESP 16; O2SAT 98
[2016-11-08] MEDS: Labetalol 5 mg/mL 4 mL Inj IVPUSH PRN (08:37)
[2016-11-08 09:03] VITALS: BP 167/107; PULSE 61; RESP 20; O2SAT 99
[2016-11-08 09:18] VITALS: BP 176/112
[2016-11-08 10:16] VITALS: PULSE 70
--- NOTE | 2016-11-08 12:01 | NUR ---
HTN Patient BP 196/118 P 59, first VS this am. Called charge, notified MD. Administered IV labetalol 5mg per charge, 15 minute check BP 167/107, administered another 5mg labetalol. Notified MD. Waiting for BP meds to arrive from Pharmacy. Care continues
--- NOTE | 2016-11-08 13:48 | CONS ---
[address] [address] CONSULTATION REPORT PATIENT: CLINTON COOL : 1970 MR#: [id number] ADMIT: 11/07/2016 JOB ID: [id number] DATE OF SERVICE: 11/08/2016 CARDIOLOGY CONSULTATION: HISTORY OF PRESENT ILLNESS: I have been asked by the Hospitalist team to assist in the evaluation and management of this patient who presents with poorly-controlled hypertension and atypical chest pain. He has a history of ischemic heart disease presenting with a [id number] myocardial infarction in 2008. Angiography at that time showed a proximal occlusion of a moderately large ramus intermedius vessel, which was treated with angioplasty and stenting. He does have moderate atherosclerosis in his other vessels with a small bifurcating second diagonal vessel with significant disease and the origin of a distal RV branch or PDA was seen to have a significant stenosis as well. He presented within a couple of weeks with stent thrombosis probably related to medication noncompliance at the time, and that was treated with balloon angioplasty. Subsequently, though he has had recurrent symptoms of chest discomfort, he has had no demonstrable recurrent ischemia. He underwent a nuclear cardiac stress study in 2011, which showed a small, focal, fixed anterolateral perfusion abnormality consistent with his previous ramus occlusion. His echocardiograms have demonstrated normal ventricular function with no obvious regional wall motion abnormalities. This gentleman had been seen by Dr. Dewitt in the clinic but because of missing a couple of appointments he was dismissed from the clinic. Over the years he has been successful with quitting cocaine, which he has not used for the past five years. He has been able to quit smoking as well, and he does not even smoke marijuana but takes oral THC instead to avoid smoking since his mother from lung cancer. A little more than a week ago he ran out of his medication prescriptions. Because of conflict regarding pain management, he was dismissed by Dr. Bennett, his primary care provider, and once his medications ran out he had nobody to refill them. He presented again with his atypical musculoskeletal chest discomfort and was noted to be markedly hypertensive and admitted for further management. REVIEW OF SYSTEMS: This gentleman can be fairly active physically. He has musculoskeletal aches and pains but has no exertional dyspnea or anginal discomfort. He apparently tolerated all of his medications well which included a number blood pressure medications, as well as statin therapy and aspirin. He had been on a medication previously that caused diarrhea but he does not recall what medication that was. SOCIAL HISTORY: This gentleman lives with his children's grandmother and several other people in the house. He has two children, one 7 years old and one 8 years old, that he cares about. PHYSICAL EXAMINATION: Shows a generally healthy-looking 46-year-old male in mild distress related to musculoskeletal discomfort involving his neck and left chest. HEENT examination is unremarkable. No scleral icterus. Oropharynx is unremarkable. No jugular venous distention. Carotid upstroke is normal. No carotid bruits. Lung robison are clear. Cardiac auscultation is normal. I do not hear a ventricular gallop or murmur. Abdomen is soft and nontender. No palpable organomegaly. The abdominal aorta is not palpably enlarged. No aortic bruit or renal bruit. Distal extremities are warm and well perfused. Distal pedal pulses are palpable. No obvious focal neurologic findings. LABORATORY DATA: Notable for blood work in the emergency department showing a low potassium, although a repeat later that day shows a normal potassium but admission potassium of 3.3. Renal function is normal. Cholesterol 140 with an LDL cholesterol of 70, HDL cholesterol 41, triglyceride level increased at 208. Troponins normal. ECG shows evidence of left ventricular hypertrophy with strain and without Q-waves or diagnostic ST-segment changes. Chest x-ray shows normal heart size and clear lung robison. IMPRESSION: 1. Poorly controlled hypertension related to medication noncompliance. 2. History of coronary artery disease with previous coronary stenting, stable without anginal symptoms. 3. Atypical musculoskeletal chest pain. DISCUSSION: The patient does not require any further specific cardiac evaluation for his musculoskeletal chest pains. The most important thing will be to get him reestablished with a primary care provider and get him back on his prior medications for blood pressure management. Since we do not have a clear idea of what his current medications are, it may be reasonable simply to start with the medications listed in our office clinic note from 2012. This would include: 1. Atenolol 50 mg twice daily. 2. Aspirin 325 mg daily. 3. Lisinopril 40 mg daily. 4. Norvasc 10 mg daily. 5. Simvastatin 40 mg daily. Additions or adjustments can be made based on his blood pressure response. Cardiology will sign off at this point, but please do not hesitate to contact me or one of my partners, showed further assistance be required.
--- NOTE | 2016-11-08 15:24 | NUR ---
AMA Patient stated he wanted to talk with MD. MD arrived in pt room. Pt reported to MD he wanted to leave AMA. Pt left AMA at [id number]; pt given AMA paper to sign by Juany YBARRA, signed and in chart. IV DC'd with catheter intact, tele DC'd bus driver/monitor notified. Patient left with all belongings.
--- NOTE | 2016-11-08 17:23 | PCM.DC.MED ---
Discharge Summary Date of Service Nov 08, 2016 Dates of Hospitalization Date of Hospital Admission Nov 07, 2016 at 03:45 Date of Discharge: Nov 08, 2016 Providers: Admitting Physician: Kim Alicea DO Primary Care Physician: [place] Attending Physician: Kim Alicea DO Procedures XRay, CTs & MRIs PROCEDURE: X-RAY CHEST ONE VIEW, PORTABLE ([id number]) INDICATIONS: chest pain TECHNIQUE: One view of the chest was acquired. COMPARISON: [facility], CR, XR CHEST 1VW (PORTABLE), 08/11/2015, 9: 29. FINDINGS: Surgical changes and devices: None. Lungs and pleura: No pleural effusions or pneumothorax. Lungs are clear. Mediastinum: Mediastinal contours appear normal. Heart size is normal. Bones and chest wall: No suspicious bony lesions. Overlying soft tissues appear unremarkable. IMPRESSION: No acute cardiopulmonary disease. Dictated by: Zaheer Philip RRHemant Interpreted: Tuan Middleton MD on 11/07/2016 at 10: 27 Transcribed by: BLAISE on 11/07/2016 at 10:28 Approved by: Wisam Middleton M.D. on 11/07/2016 at 16:21 PROCEDURE: X-RAY CERVICAL SPINE, 2 OR 3 VIEWS INDICATIONS: pain TECHNIQUE: 3 view(s) of the cervical spine were acquired. COMPARISON: None. FINDINGS: Bones: No fractures or dislocations to the C7 level. The lateral masses of C1 appear intact on the odontoid view. No suspicious bony lesions. Soft tissues: No prevertebral soft tissue swelling. IMPRESSION: No acute radiographic findings. Dictated by: Angelica Voss M.D. on 11/07/2016 at 21:45 Approved by: Angelica Voss M.D. on 11/07/2016 at 21:46 PROCEDURE: X-RAY THORACIC SPINE, 2 VIEWS INDICATIONS: pain TECHNIQUE: 3 views of the thoracic spine were acquired. COMPARISON: None. FINDINGS: Bones: No fractures or dislocations. No suspicious bony lesions. Wells pairs of ribs are noted, and appear intact where visualized. Soft tissues: No paravertebral stripe thickening. IMPRESSION: No acute radiographic findings. Dictated by: Angelica Voss M.D. on 11/07/2016 at 21:38 Approved by: Angelica Voss M.D. on 11/07/2016 at 21:45 Brief History Patient is a 46-year-old male with CAD s/p PCI, CVA, hypertension and dyslipidemia presenting with left sided chest pain. Patient reports onset of chest pain about three days ago and describes it as an intermittent "tight, tense, throbbing and pressure-like" pain. Patient says the pain is exacerbated by exertion and relieved some with hot bath and Vicodin that he had leftover from previous prescription. Patient states he has been out of all his medications for about the past week as he currently doesn't have a PCP and does not have any refill on his medications. Patient reports associated diaphoresis, nausea and emesis with last episode of emesis the day prior to admit. He also endorses what feels like left neck muscle spasms with his chest pain. Patient otherwise denies shortness of breath, lightheadedness, dizziness, acute vision changes. Patient states his roommate brought him into [facility] ED for further evaluation after noticing the patient. Patient denies similar pain in the past. At time of visit, the patient reports improvement in his chest pain. In the ED, vitals: temp 36.6, HR 85, RR 16 satting 100% on room air, BP 195/ 103. Labs: Pro-BNP 167, troponin<0.010, d-dimer<0.05. Patient started on a nitro gtt in the ED. patient was admitted to the hospital service for further evaluation and treatment. Hospital Course Patient is a 46-year-old gentleman with CAD s/p PCI, CVA, hypertension, and dyslipidemia, that presented to [facility] with left sided chest pain. He was admitted for evaluation and treatment of hypertensive emergency and chest pain monitoring. - Hospital day 1 Hypertensive emergency, acute. Present on admission. Active -BP 195/103 with chest pain and vomiting -Nitroglycerin gtt initiated in ED; decrease as tolerated - Meds ordered on admit: Atenolol 50 BID, ASA 81 daily, atorvastatin 40mg nightly, lisinopril 20mg daily - Reinstate home medications when reconciliation completed - Labetalol 5-10mg IV push q4h prn BP sys > 170, yeison > 110 for greater than 15 minutes - Dr. Sekou Ramos of cardiology was consulted and his impression and recommendations are as follows: "IMPRESSION: 1. Poorly controlled hypertension related to medication noncompliance. 2. History of coronary artery disease with previous coronary stenting, stable without anginal symptoms. 3. Atypical musculoskeletal chest pain. DISCUSSION: The patient does not require any further specific cardiac evaluation for his musculoskeletal chest pains. The most important thing will be to get him reestablished with a primary care provider and get him back on his prior medications for blood pressure management. Since we do not have a clear idea of what his current medications are, it may be reasonable simply to start with the medications listed in our office clinic note from 2012. This would include: 1. Atenolol 50 mg twice daily. 2. Aspirin 325 mg daily. 3. Lisinopril 40 mg daily. 4. Norvasc 10 mg daily. 5. Simvastatin 40 mg daily. Additions or adjustments can be made based on his blood pressure response." Acute chest pain. Present on admission. Ongoing with improvements -Suspect to be secondary to recent trauma/muscle strain (doubt ACS) -Troponin negative x 2 -She was monitored on Telemetry -Morphine was given PRN only Costochondritis, acute, present on admission. Ongoing - Pain with palpation to left sternal region and left chest - Patient reports increase in activity and recent impact with crabbing pot hit to chest - Toradol 30mg IV q6h was given with significant relief - Ice packs and re-assurance were offered - XR cervical and thoracic spine to eval underlying injury were negative CAD, chronic. Present on admission -Continue ASA -Resume home meds when verified Dyslipidemia, chronic. Present on admission -Lipid panel 11/07: total chol 140, LDL 70, HDL 28, TG 208 -Continue home dose statin when verified Hypertension, chronic. Not well controlled -Patient out of medications over the past week -See #1 above - Patient will need hospital FU appt with a provider - Patient states that he has blood pressure medications at home and is leaving AGAINST MEDICAL ADVICE - Will not provide pain medication Rx at [place]. Patient admits that he buys pain medications on the street. He also admits that he very much wants to go buy some right now. Therefore patient is leaving AGAINST MEDICAL ADVICE. Chronic pain. Presumed stable -Follow clinically Disposition: Patient left the hospital AGAINST MEDICAL ADVICE. This is despite being informed that he could certainly have a heart attack and/or this did not seem to phase him and he insisted on going home AGAINST MEDICAL ADVICE. Exam Vital Signs (Last) Date Time Temp Pulse Resp B/P Pulse Ox O2 Delivery O2 Flow Rate FiO2 11/08/16 10:16 70 11/08/16 09:18 176/112 11/08/16 09:03 20 99 Room Air 11/08/16 08:30 36.6 Exam General: Patient appears to be in no apparent distress. He appears very comfortable. However he is insisting on leaving AGAINST MEDICAL ADVICE as he wants to buy narcotics on the street he states that he has his own blood pressure medications at home and he can take those. [place] Tried to explain to the patient that he needs to stay in the hospital so that we could control his blood pressure and adjust his medications as needed. He had complete understanding what we are trying to do however stated that he was going to leave the hospital AGAINST MEDICAL ADVICE anyway. I explained the risk of leaving hospital AGAINST MEDICAL ADVICE which included morbidity and . He stated that he needed to leave the hospital anyway and was going to go AGAINST MEDICAL ADVICE. HEENT: Head is atraumatic and normocephalic. Eyes: Pupils are equally round and reactive to light and accommodation. Extraocular muscles are intact. Sclera are white, anicteric. Subconjunctival mucosa is pink. Ears and nose are unremarkable. Oropharynx: There is no mucosal lesions, there is no thrush, there is no pharyngitis. Neck: Is supple, there are no nodes, or masses or tenderness. Chest: Is clear to auscultation and percussion. There are no rales, rhonchi, wheezes or rubs. There is costochondral tenderness along the left parasternal border radiating to the left shoulder with palpation. This pain is exact pain that he was having when he came to the emergency room. It is also pain that is reproducible by palpation of the chest wall. Otherwise he has no pain. Heart: Rate, rhythm is regular. There is no new murmur, rub or gallop. Abdomen: Good bowel sounds are present. Abdomen is soft, nontender, no organomegaly or masses were appreciated. Extremities: Are symmetrical and well perfused. There is no edema, there is no cellulitis, no rash. Neurologic: There are no focal neurological deficits. Cranial nerves II through XII are intact. There are no sensory or motor deficits. Psychiatric: Patients mood is calm and he is showing some early signs of agitation. Genital: Deferred Rectal: Deferred Test 11/07/16 01:12 11/07/16 03:30 11/07/16 10:26 11/08/16 05:26 Prothrombin Time 10.2sec (8.1-12.5) Prothromb Time International Ratio 0.95ratio Activated Partial Thromboplast Time 27.8sec (22.8-33.0) D-Dimer < 0.5mg/L (<0.50) Pro-B-Type Natriuretic Peptide 167pg/mL (0-121) Hold Dhaliwal Top Tube Received (Received) Troponin T 0.010ug/L (0.0-0.011) Triglycerides Level 208mg/dL (0-149) Cholesterol Level 140mg/dL (100-199) LDL Cholesterol, Calculated 70.400mg/dL (0-99) VLDL Cholesterol 41.600mg/dL HDL Cholesterol 28mg/dL (>39) Cholesterol/HDL Ratio 5.00 (0.0-4.4) Total Bilirubin 0.4mg/dL (0.0-1.2) Aspartate Amino Transf (AST/SGOT) 16U/L (0-50) Alanine Aminotransferase (ALT/SGPT) 16U/L (0-44) Alkaline Phosphatase 56U/L (25-150) Total Protein 6.2g/dL (6.4-8.4) Albumin 3.8g/dL (3.4-5.0) White Blood Count 6.1th/mm3 (3.8-10.1) Red Blood Count 4.28mil/mm3 (4.40-5.80) Hemoglobin 12.9g/dL (13.8-17.2) Hematocrit 38.3% (41.0-50.0) Mean Corpuscular Volume 89.5fL (81-100) Mean Corpuscular Hemoglobin 30.1pg (27.0-35.0) Mean Corpuscular Hemoglobin Concent 33.7% (32.0-37.0) Red Cell Distribution Width 12.6% (12.3-15.4) Platelet Count 199bil/L (150-400) Neutrophils (%) (Auto) 59.8% (40-74) Lymphocytes (%) (Auto) 27.4% (14-46) Monocytes (%) (Auto) 8.7% (4-12) Eosinophils (%) (Auto) 3.6% (0-5) Basophils (%) (Auto) 0.3% (0-3) Sodium Level 142mEq/L (134-144) Potassium Level 4.0mEq/L (3.5-5.2) Chloride Level 107mEq/L (97-108) Carbon Dioxide Level 24mmol/L (18-29) Blood Urea Nitrogen 13mg/dL (6-24) Creatinine 0.83mg/dL (0.76-1.27) Estimat Glomerular Filtration Rate 106mL/min (>59) Glucose Level 96mg/dL (60-99) Calcium Level 8.1mg/dL (8.5-10.1) Phosphorus Level 2.9mg/dL (2.5-4.9) Magnesium Level 2.2mg/dL (1.6-2.6) Discharge Medications Discharge Medications Atorvastatin (Lipitor) 40 Mg Tablet 40 MG PO HS (Reported) Clopidogrel (Clopidogrel) 75 Mg Tablet 75 MG PO DAILY (Reported) Gabapentin (Gabapentin) 600 Mg Tablet 1,200 MG PO TID (Reported) Followup Plan Disposition: Patient left the hospital AGAINST MEDICAL ADVICE. Follow-up plan Patient is to follow-up with a doctor the [facility] per his choice. He left the hospital AGAINST MEDICAL ADVICE. Time spent Patient left the hospital AGAINST MEDICAL ADVICE Hebert Lundy MD Nov 08, 2016 17:23
== END 2016-11-08 14:48 | disposition left against medical advice (07) | DRG 199 ==
LOC: SED 00:45 → PCC 03:45 → CCU 07:01 → PCC 17:26
PROVIDERS: ADMIT Internal Medicine; ATTEND Internal Medicine
DX: I16.1 Hypertensive emergency (principal); E78.5 Hyperlipidemia, unspecified; I10 Essential (primary) hypertension; I25.10 Atherosclerotic heart disease of native coronary artery without angina pectoris; Z86.73 Personal history of transient ischemic attack (TIA), and cerebral infarction without residual deficits; I25.2 Old myocardial infarction; Z87.891 Personal history of nicotine dependence; G89.29 Other chronic pain; M94.0 Chondrocostal junction syndrome [Tietze]; R07.89 Other chest pain

== ENCOUNTER 2016-12-15 09:25 | Emergency (ER) | payer MEDICAID, OTHER ==
[~2016-12-15] VITALS: Ht 175.3 cm; Wt 84.1 kg
[~2016-12-15 09:25] MED LIST changes: -AMLO10TA3 PO; -ASPI325T32 PO; -CYCL10TA9 PO; -GABA300C PO; +GABA600T2 PO; -HYDR25TA4 PO; -LISI40TA PO; -METO100T3 PO; -NITR0.4T6 SL; -OXYC5TAB72 PO; -PRAZ2CAP2 PO
[2016-12-15 09:29] VITALS: BP 237/142; PULSE 88; RESP 16; O2SAT 98
--- NOTE | 2016-12-15 09:47 | ED.REPORT ---
HPI-Chest Pain 40 and Over Date of Service Dec 15, 2016 ED Provider: Lee Ortega MD Pt is a 46 y.o. male with an extensive medical hx including cardiac stents secondary to [place], CAD, HTN, HLD, and CVA who presents to the ED via [facility] from [facility] c/o left chest pain radiating to his left arm onset 2 days ago. Pt reports associated nausea, vomiting (x2), diarrhea, dizziness, headache, SOB, diaphoresis. He states that he was just casually walking (not strenuous activity ) upon onset, he describes the chest pain as "tense and tight" and is not exacerbated by anything. He reports not being compliant with his blood pressure medication for the last 3 days. Pt denies recent cocaine use. Nursing Notes Stated Complaint: CHEST PAIN, TINGLING LEFT ARM, HEADACHE Chief Complaint: Chest Pain Nursing Notes Reviewed: Yes Allergies: Coded Allergies: Sulfa (Sulfonamide Antibiotics) (Verified Allergy, Intermediate, Rash, ) Scheduled Atorvastatin (Lipitor) 40 Mg Tablet 40 MG PO HS Clopidogrel (Clopidogrel) 75 Mg Tablet 75 MG PO DAILY Gabapentin (Gabapentin) 600 Mg Tablet 1,200 MG PO TID General Time Seen by MD: 09:46 Chief Complaint Chest pain Hx Obtained From: Patient Arrived By: Police Sudden in Onset?: Yes Onset Occurred: 2 days ago Symptom Duration: Since onset Location: : Chest left Quality: Painful Radiation: : Arm left Severity: Maximum: Severe Risk Factors PERC Rule PERC Result: All PERC criteria "No", PERC rule satisfied Past Medical History Past Medical History Notes: No blood thinners Chronic pain medication contract currently in place PCP: Dr. Stevan Ferrera Past Medical History 1. Coronary artery disease. An acute lateral myocardial infarction in 2008. The patient had a PTCA to the occluded ramus. A stent placed and then a week later there was in-stent stenosis. He had a repeat PTCA. Ejection fraction at that time was 45%. Echocardiogram from February 07, 2011 showed LVH, EF 60% to 65%, unrevealing valves. Myocardial perfusion scan on September 27, 2010 showed a moderate-sized defect, fixed, mid-anterior wall without a reversible component. 2. Hypertension. 3. History of stroke. 4. Hyperlipidemia. 5. Cocaine use. 6. Left femur fracture with cindy placement. 7. Chronic lower back pain Past Surgical History Cardiac stents lower extremity surgery Family History Noncontributory Smoking History Former Smoker Social History The patient has history of cocaine abuse. He currently only uses THC. The patient has a history of incarceration (08/11/15) Alcohol Use: Denies alcohol use Drug Use: THC Other Social History: Local resident Ambulatory Status Independent Review of Systems Respiratory: Reports: Shortness of breath Cardiovascular: Reports: Chest pain GI: Reports: Diarrhea, Nausea, Vomiting Musculoskeletal: Reports: Extremity pain (left arm) Skin: Reports Diaphoresis Neurologic: Reports: Dizziness, Headache Complete sys rev & neg: except as marked. Physical Exam Initial Vital Signs Vital Signs (First) Date Time Temp Pulse Resp B/P Pulse Ox O2 Delivery O2 Flow Rate FiO2 12/15/16 09:29 36.4 88 16 237/142 98 Room Air 12/15/16 10:30 2 Initial VS: Reviewed Head / Eyes: Atraumatic, Normocephalic Extremities: Vascular intact, Neuro intact Skin: Warm, Dry, No cyanosis Neurologic: Alert, Oriented, Nonfocal Psychiatric: Mood/affect normal, Behavior normal, Normal thought content General/Constitutional: Awake, Alert, No acute distress, Well appearing, Well developed, Well hydrated, Well nourished, Not toxic appearing Respiratory / Chest: Atraumatic, Breath sounds NL, Breath sounds = bilat, No respiratory distress Cardiovascular: Heart rate NL, Regular rhythm, Heart sounds NL, Peripheral circulation NL Abdomen: Atraumatic, Non-tender, No distention Interpretation & Diagnostics Lab Results Interpretation Result Diagram: 12/15/16 0940 12/15/16 0940 Test 12/15/16 09:40 White Blood Count 7.5th/mm3 (3.8-10.1) Red Blood Count 5.30mil/mm3 (4.40-5.80) Hemoglobin 16.1g/dL (13.8-17.2) Hematocrit 46.0% (41.0-50.0) Mean Corpuscular Volume 86.8fL (81-100) Mean Corpuscular Hemoglobin 30.4pg (27.0-35.0) Mean Corpuscular Hemoglobin Concent 35.0% (32.0-37.0) Red Cell Distribution Width 12.9% (12.3-15.4) Platelet Count 299bil/L (150-400) Neutrophils (%) (Auto) 71.2% (40-74) Lymphocytes (%) (Auto) 18.8% (14-46) Monocytes (%) (Auto) 7.8% (4-12) Eosinophils (%) (Auto) 1.3% (0-5) Basophils (%) (Auto) 0.5% (0-3) Sodium Level 139mEq/L (134-144) Potassium Level 4.6mEq/L (3.5-5.2) Chloride Level 100mEq/L (97-108) Carbon Dioxide Level 23mmol/L (18-29) Blood Urea Nitrogen 8mg/dL (6-24) Creatinine 0.81mg/dL (0.76-1.27) Estimat Glomerular Filtration Rate 110mL/min (>59) Glucose Level 118mg/dL (60-99) Calcium Level 10.5mg/dL (8.5-10.1) Magnesium Level 2.1mg/dL (1.6-2.6) Total Bilirubin 0.6mg/dL (0.0-1.2) Aspartate Amino Transf (AST/SGOT) 28U/L (0-50) Alanine Aminotransferase (ALT/SGPT) 23U/L (0-44) Alkaline Phosphatase 75U/L (25-150) Troponin T 0.010ug/L (0.0-0.011) Total Protein 9.5g/dL (6.4-8.4) Albumin 5.0g/dL (3.4-5.0) Hold Dhaliwal Top Tube Received (Received) X-Ray Chest Interpretation Chest Xray Interpretation: IMPRESSION: No acute process. Dictated by: Luis Fernando Hendricks M.D. on 12/15/2016 at 10:24 Approved by: Luis Fernando Hendricks M.D. on 12/15/2016 at 10:33 Re-Eval/Medical Decision Source of Hx: Old records Counseled Regarding: Diagnosis, Lab results Discharge & Departure Primary Impression: Chest pain Chest pain type: unspecified Qualified Code: R07.9 - Chest pain, unspecified Disposition: [facility]/LAW ENFORCEMENT Discharge Condition All VS Reviewed: Yes Condition: Improved Patient Instructions: Chest Pain (ED) Additional Instructions: No dangerous cause for the chest pain is discovered today. Tylenol or ibuprofen as needed for pain. Follow-up with [facility] medical if symptoms are worse. Follow-up with a primary care doctor in the coming weeks for further evaluation if needed. Referrals: NOPCP (PCP) Stevan Ferrera MD Attestation Portions of this note were transcribed by Mg Seymour. I, Dr. Ortega personally performed the history, physical exam and medical decision-making; I reviewed and confirmed the accuracy of the information in the transcribed note. Signed by: Marybeth Frankel, 12/15/16 and 1325. copies to: Stevan Ferrera MD, Kirk H MD Dec 15, 2016 09:47 MG SEYMOUR Dec 15, 2016 09:48
[2016-12-15 10:15] LABS: BASOPHILS % (AUTO) 0.5 % (0-3); EOSINOPHILS % (AUTO) 1.3 % (0-5); MONOCYTES % (AUTO) 7.8 % (4-12); Mean Corpuscular Hemoglobin 30.4 pg (27.0-35.0); Mean Corpuscular Volume 86.8 fL (81-100); NEUTROPHILS % (AUTO) 71.2 % (40-74); Platelet Count 299 bil/L (150-400)
[2016-12-15 10:22] LABS: TROPONIN T 0.01 ug/L (0.0-0.011)
[2016-12-15 10:30] VITALS: BP 184/108; PULSE 85; RESP 12; O2SAT 100
[2016-12-15 10:33] LABS: Magnesium 2.1 mg/dL (1.6-2.6)
--- NOTE | 2016-12-15 10:34 | DRSVH ---
PROCEDURE: X-RAY CHEST ONE VIEW, PORTABLE ([id number]) INDICATIONS: chest pain TECHNIQUE: One view of the chest was acquired. COMPARISON: [facility], CR, XR CHEST 1VW (PORTABLE), 11/07/2016, 1:21. [facility], CR, XR CHEST 1VW (PORTABLE), 08/11/2015, 9:29. [facility], CR, CHEST 1VW (PORTABL E), 09/24/2013, 14:31. FINDINGS: Surgical changes and devices: None. Lungs and pleura: No pleural effusions or pneumothorax. Lungs are clear. Mediastinum: Mediastinal contours appear normal. Heart size is normal. Bones and chest wall: No suspicious bony lesions. Overlying soft tissues appear unremarkable. IMPRESSION: No acute process. Dictated by: Luis Fernando Hendricks M.D. on 12/15/2016 at 10:24 Approved by: Luis Fernando Hendricks M.D. on 12/15/2016 at 10:33
[2016-12-15 11:27] VITALS: BP 215/119; PULSE 90; RESP 20; O2SAT 98
[2016-12-15 14:03] VITALS: BP 194/108; PULSE 83; RESP 12; O2SAT 98
== END 2016-12-15 14:04 ==
LOC: SED 09:25
DX: R07.89 Other chest pain (principal); I25.2 Old myocardial infarction; I25.10 Atherosclerotic heart disease of native coronary artery without angina pectoris; I10 Essential (primary) hypertension; E78.5 Hyperlipidemia, unspecified; Z95.5 Presence of coronary angioplasty implant and graft; Z86.73 Personal history of transient ischemic attack (TIA), and cerebral infarction without residual deficits; Z87.891 Personal history of nicotine dependence; Z88.2 Allergy status to sulfonamides

== ENCOUNTER 2016-12-17 17:01 | Emergency (ER) | payer MEDICAID, OTHER ==
[~2016-12-17] VITALS: Ht 175.3 cm; Wt 84.1 kg
[2016-12-17 17:32] VITALS: BP 213/106; PULSE 93; RESP 20; O2SAT 98
--- NOTE | 2016-12-17 18:03 | ED.REPORT ---
HPI-Abd Pain M 40 and Over Date of Service Dec 17, 2016 ED Provider: Khadar Barfield DO This is a very pleasant 46-year-old male who presents with uncontrolled high blood pressure and associated pounding headache and nonspecific chest pain. He states that his chest hurts when his blood pressure gets too high and this been going on for 4 days. He developed a gradual onset headache that is worsening with blood pressure is elevated as well. He is currently incarcerated his blood pressure was markedly elevated in spite of taking his antihypertensives. He was brought in for evaluation. The headache was gradual in onset and not thunderclap. The headache is not the worst of his life. The headache is rated as mild. The headache is retro- orbital bulbar. There is no associated vomiting, neck stiffness or syncope. The headache improves when his blood pressure comes down. The chest pain is described as a vague ache on his blood pressure is too high. There is no ripping, tearing or squeezing pain. Blood pressure control seems to reduce the pain. Nursing Notes Stated Complaint: CHEST PAIN Chief Complaint: Chest Pain Nursing Notes Reviewed: Yes Allergies: Coded Allergies: Sulfa (Sulfonamide Antibiotics) (Verified Allergy, Intermediate, Rash, ) Scheduled Atorvastatin (Lipitor) 40 Mg Tablet 40 MG PO HS Clopidogrel (Clopidogrel) 75 Mg Tablet 75 MG PO DAILY Gabapentin (Gabapentin) 600 Mg Tablet 1,200 MG PO TID General Time Seen by MD: 17:53 Chief Complaint Other (Chest pain) Hx Obtained From: Patient Arrived By: Police Sudden in Onset?: No Onset Occurred: 3 days ago ("several days") Symptom Duration: Since onset Recent Healthcare: Recent doctor visit, Recent hospitalization Similar Sx Previous: Yes Past Medical History Past Medical History Notes: No blood thinners Chronic pain medication contract currently in place PCP: Dr. Stevan Ferrera Past Medical History 1. Coronary artery disease. An acute lateral myocardial infarction in 2008. The patient had a PTCA to the occluded ramus. A stent placed and then a week later there was in-stent stenosis. He had a repeat PTCA. Ejection fraction at that time was 45%. Echocardiogram from February 07, 2011 showed LVH, EF 60% to 65%, unrevealing valves. Myocardial perfusion scan on September 27, 2010 showed a moderate-sized defect, fixed, mid-anterior wall without a reversible component. 2. Hypertension. 3. History of stroke. 4. Hyperlipidemia. 5. Cocaine use. 6. Left femur fracture with cindy placement. 7. Chronic lower back pain Past Surgical History Cardiac stents lower extremity surgery Family History Noncontributory Smoking History Former Smoker Social History The patient has history of cocaine abuse. He currently only uses THC. The patient has a history of incarceration Alcohol Use: Denies alcohol use Drug Use: THC Other Social History: Local resident Ambulatory Status Independent Review of Systems Review of Systems Note: denies vision loss Constitutional: Denies: Fever Respiratory: Denies: Non-productive cough Cardiovascular: Reports: Chest pain GI: Denies: Abdominal pain, Vomiting Musculoskeletal: Denies: Back pain, Neck pain Complete sys rev & neg: except as marked. Skin: Denies Rash Neurologic: Reports: Dizziness, Headache, Vision change ("white spots") Physical Exam Initial Vital Signs Vital Signs (First) Date Time Temp Pulse Resp B/P Pulse Ox O2 Delivery O2 Flow Rate FiO2 12/17/16 17:32 37.2 93 20 213/106 98 Room Air Initial VS: Reviewed General/Constitutional: Awake, Alert Respiratory / Chest: Atraumatic, Breath sounds NL, Breath sounds = bilat, No respiratory distress reproducible tenderness at the left sternal border to the left lateral rib area Cardiovascular: Heart rate NL, Regular rhythm, Heart sounds NL Abdomen: Atraumatic, Soft, Non-tender Back: Atraumatic, Full range of motion Head / Eyes: Atraumatic, Normocephalic, PERRL, EOMI ENT: Atraumatic, Airway patent, Mucous membranes moist Skin: Atraumatic, Color NL, No rash, Warm, Dry Neurologic: Oriented X3, Speech NL, No motor deficits, No sensory deficits Neck: Atraumatic, Supple, Full range of motion Upper Extremity / MS: Atraumatic, Full range of motion Lower Extremity / Pelvis / MS: Atraumatic, Full range of motion Psychiatric: Affect NL, Mood NL Interpretation & Diagnostics Lab Results Interpretation Result Diagram: 12/17/16181012/17/161810 Test 12/17/16 18:11 12/17/16 18:58 12/17/16 21:15 12/17/16 21:46 White Blood Count 5.2th/mm3 (3.8-10.1) Red Blood Count 5.12mil/mm3 (4.40-5.80) Hemoglobin 15.8g/dL (13.8-17.2) Hematocrit 44.4% (41.0-50.0) Mean Corpuscular Volume 86.7fL (81-100) Mean Corpuscular Hemoglobin 30.9pg (27.0-35.0) Mean Corpuscular Hemoglobin Concent 35.6% (32.0-37.0) Red Cell Distribution Width 12.6% (12.3-15.4) Platelet Count 274bil/L (150-400) Neutrophils (%) (Auto) 52.1% (40-74) Lymphocytes (%) (Auto) 24.8% (14-46) Monocytes (%) (Auto) 20.5% (4-12) Eosinophils (%) (Auto) 1.4% (0-5) Basophils (%) (Auto) 1.0% (0-3) Sodium Level 140mEq/L (134-144) Potassium Level 3.7mEq/L (3.5-5.2) Chloride Level 99mEq/L (97-108) Carbon Dioxide Level 25mmol/L (18-29) Blood Urea Nitrogen 10mg/dL (6-24) Creatinine 0.91mg/dL (0.76-1.27) Estimat Glomerular Filtration Rate 96mL/min (>59) Glucose Level 93mg/dL (60-99) Calcium Level 9.8mg/dL (8.5-10.1) Magnesium Level 2.2mg/dL (1.6-2.6) Total Bilirubin 0.6mg/dL (0.0-1.2) Aspartate Amino Transf (AST/SGOT) 20U/L (0-50) Alanine Aminotransferase (ALT/SGPT) 23U/L (0-44) Alkaline Phosphatase 76U/L (25-150) Total Protein 9.1g/dL (6.4-8.4) Albumin 4.8g/dL (3.4-5.0) D-Dimer < 0.5mg/L (<0.50) Troponin T 0.010ug/L (0.0-0.011) Hold [place] Top Tube Received (Received) Pulse Oximetry Interpretation Pulse Oximetry Interpretation: 98% on room air Pulse Oximetry: Pulse Ox normal ECG Interpretation ECG Interpretation: normal sinus rhythm with a rate of 83 LVH T wave inversion in AVL present in prior EKG, consistent with strain Time: 17:28 Interpreted by: ED physician X-Ray Chest Interpretation Chest Xray Interpretation: IMPRESSION: No acute process. Dictated by: Luis Fernando Hendricks M.D. on 12/17/2016 at 18:23 Approved by: Luis Fernando Hendricks M.D. on 12/17/2016 at 18:23 Interpretation / Wet Read by: Interpret - Radiologist CT Head Interpretation IMPRESSION: No acute process. Dictated by: Luis Fernando Hendricks M.D. on 12/17/2016 at 18:38 Approved by: Luis Fernando Hendricks M.D. on 12/17/2016 at 18:39 Interpretation / Wet Read by: Interpret - Radiologist Re-Eval/Medical Decision Med Decision/Clinical Course Paul did great. His blood pressure came down nicely with medications. Structural troponins were normal. EKG showed LVH however no acute ischemia. CT of his head was normal. D-dimer was negative. I considered aortic dissection to be very unlikely. He has symmetric pulses, symmetric limb blood pressures, normal chest x-ray negative d-dimer and no ripping or tearing pain in his chest. Angiograph ECT felt to be not indicated. Pulmonary emboli unlikely. Acute MD ruled out based on diagnostics. Paul felt much better. He is currently incarcerated. He will be under the care of the detention physician. He has much better blood pressure control. I will place him on clonidine as responded to that nicely. Recommended very close follow-up. Source of Hx: Old records Time of Eval: 19:30 Patient Status: Condition improved Re-Evaluation/Progress Note: Pt rechecked, who is resting. He is informed of his lab results and the plan for further treatment. Time of Eval: 22:57 Patient Status: Condition improved Re-Evaluation/Progress Note: Pt rechecked, whose symptoms have reslved with lowering of blood pressure. The diagnosis and plan for discharge are discussed. The pt understands and agrees with the plan. All questions are addressed at this time. Counseled Regarding: Diagnosis, Lab results, Need for follow-up, When/why to return to ED Discharge & Departure Primary Impression: Accelerated hypertension Additional Impressions: High blood pressure Hypertension type: essential hypertension Hypertension goal: less than 140/ 90 Qualified Code: I10 - Essential (primary) hypertension Head ache Headache type: unspecified Headache chronicity pattern: acute headache Intractability: not intractable Qualified Code: R51 - Headache Disposition: Home Vital Signs - All Vital Signs Date Time Temp Pulse Resp B/P Pulse Ox O2 Delivery O2 Flow Rate FiO2 12/17/16 22:48 78 11 136/88 97 Room Air 12/17/16 21:56 79 22 147/92 95 Room Air 12/17/16 20:19 36.9 80 21 175/115 97 Room Air 12/17/16 20:18 176/113 12/17/16 19:08 86 24 194/130 95 Room Air 12/17/16 17:32 37.2 93 20 213/106 98 Room Air )( All Prior VS Reviewed: Yes Condition: Stable Patient Instructions: Acute Headache (ED), Chest Pain (ED), Chronic Hypertension (ED) Additional Instructions: The CAT scan of your brain was normal. The EKG did not show signs of a heart attack. The EKG was consistent with prior EKGs and your serial heart blood tests were normal. You did have very elevated blood pressure. It is essential that you have blood pressure control. I am going to place one clonidine that you will take twice daily. Add this to the other medications which you are taking. Have your blood pressure checked daily. I will also refer you for outpatient follow-up. I would like the detention practitioner to keep a close eye and your blood pressure. Return if any problems or any worsening symptoms. Referrals: [facility] Res[facility] Scribe Attestation Portions of this note were transcribed by Edna Chaudhary. I, Dr. Barfield personally performed the history, physical exam and medical decision-making; I reviewed and confirmed the accuracy of the information in the transcribed note. Signed by: Marybeth Reynoso, 12/17/2016 and 2312. copies to: [facility] Khadar Barfield DO Dec 17, 2016 18:03 EDNA CHAUDHARY Dec 17, 2016 18:14
[2016-12-17] MEDS ORDERED: Nitroglycerin 2% 1 Gm Ointment TOPICAL ONE (18:20)
[2016-12-17] MEDS ORDERED: Labetalol 5 mg/mL 4 mL Inj IVPUSH ONE (18:20)
--- NOTE | 2016-12-17 18:25 | DRSVH ---
PROCEDURE: X-RAY CHEST ONE VIEW, PORTABLE ([id number]) INDICATIONS: CHEST PAIN TECHNIQUE: One view of the chest was acquired. COMPARISON: [facility], CR, XR CHEST 1VW (PORTABLE), 12/15/2016, 10:08. FINDINGS: Surgical changes and devices: None. Lungs and pleura: No pleural effusions or pneumothorax. Lungs are clear. Mediastinum: Mediastinal contours appear normal. Heart size is normal. Bones and chest wall: No suspicious bony lesions. Overlying soft tissues appear unremarkable. IMPRESSION: No acute process. Dictated by: Luis Fernando Hendricks M.D. on 12/17/2016 at 18:23 Approved by: Luis Fernando Hendricks M.D. on 12/17/2016 at 18:23
--- NOTE | 2016-12-17 18:40 | DRSVH ---
PROCEDURE: CT BRAIN WITHOUT CONTRAST ([id number]) INDICATIONS: headache, uncontrolled hypertension TECHNIQUE: Noncontrast 4.5 mm thick angled axial sections acquired from the foramen magnum to the vertex, with c oronal reformats. COMPARISON: None. FINDINGS: Image quality: Excellent. CSF spaces: Basal cisterns are patent. No extra-axial fluid collections. Ventricles are normal in size and shape. Brain: No midline shift. No intracranial masses or hemorrhage. Ambrosio-white matter interface is norm al. Skull and face: Calvarium and visualized facial bones are intact, without suspicious lesions. Sinuses: Visualized sinuses and mastoids are clear. IMPRESSION: No acute process. Dictated by: Luis Fernando Hendricks M.D. on 12/17/2016 at 18:38 Approved by: Luis Fernando Hendricks M.D. on 12/17/2016 at 18:39
[2016-12-17 19:00] LABS: EOSINOPHILS % (AUTO) 1.4 % (0-5); MONOCYTES % (AUTO) 20.5 % (4-12); Mean Corpuscular Hemoglobin 30.9 pg (27.0-35.0); Mean Corpuscular Volume 86.7 fL (81-100); NEUTROPHILS % (AUTO) 52.1 % (40-74); Platelet Count 274 bil/L (150-400)
[2016-12-17 19:08] VITALS: BP 194/130; PULSE 86; RESP 24; O2SAT 95
[2016-12-17 19:40] LABS: Magnesium 2.2 mg/dL (1.6-2.6)
[2016-12-17 19:42] LABS: TROPONIN T < 0.010 ug/L (0.0-0.011)
[2016-12-17] MEDS: Labetalol 5 mg/mL 4 mL Inj IVPUSH PRN ×2 (19:56→20:27)
[2016-12-17 20:18] VITALS: BP 176/113
[2016-12-17 20:19] VITALS: BP 175/115; PULSE 80; RESP 21; O2SAT 97
[2016-12-17 21:56] VITALS: BP 147/92; PULSE 79; RESP 22; O2SAT 95
[2016-12-17 22:48] VITALS: BP 136/88; PULSE 78; RESP 11; O2SAT 97
== END 2016-12-17 22:49 | disposition home or self-care (01) ==
LOC: SED 17:01
DX: I10 Essential (primary) hypertension (principal); R51 Headache; I11.9 Hypertensive heart disease without heart failure; I25.10 Atherosclerotic heart disease of native coronary artery without angina pectoris; I25.2 Old myocardial infarction; Z95.5 Presence of coronary angioplasty implant and graft; Z87.891 Personal history of nicotine dependence; Z88.2 Allergy status to sulfonamides

== ENCOUNTER 2017-01-27 23:34 | Emergency (ER) | payer MEDICAID, OTHER ==
[~2017-01-27] VITALS: Ht 175.3 cm; Wt 81.0 kg
[2017-01-27 23:39] VITALS: BP 170/88; PULSE 87; RESP 16; O2SAT 99
--- NOTE | 2017-01-28 01:58 | ED.REPORT ---
HPI-Back Pain 40 and Over Date of Service January 28, 2017 ED Provider: Kale Bonilla MD A 47 year old male with a history of CAD, hypertension, CVA, hyperlipidemia and chronic lower back pain presents to the ED complaining of right sided pain that began 2 days ago. Patient was released from [facility] yesterday. He reports that he fell off the top bunk 2 days ago and fell onto his right side. He is currently complaining of right shoulder, hip and knee pain. Patient is able to ambulate. He was taking 6 Percocet per day during previous flares of back pain. Patient was previously seen in the ED on 12/15 and 12/17 for chest pain and accelerated hypertension due to uncontrolled BP. Nursing Notes Stated Complaint: LEFT HIP, BACK, AND KNEE PAIN Chief Complaint: Back Pain or Injury Nursing Notes Reviewed: Yes Allergies: Coded Allergies: Sulfa (Sulfonamide Antibiotics) (Verified Allergy, Intermediate, Rash, ) Scheduled Atorvastatin (Lipitor) 40 Mg Tablet 40 MG PO HS Clopidogrel (Clopidogrel) 75 Mg Tablet 75 MG PO DAILY Gabapentin (Gabapentin) 600 Mg Tablet 1,200 MG PO TID General Time Seen by MD: 01:52 Chief Complaint Back pain Hx Obtained From: Patient Arrived By: Walk-in Sudden in Onset?: No Onset Occurred: 1 - 4 hours ago Symptom Duration: Since onset Caused by: Chronic Injury Location: : Generalized Quality: Painful Radiation: : Does not radiate Severity: Current: Mild Severity: Maximum: Moderate Associated with: Denies: Inability to walk Pertinent Negative: Pt denies other symptoms Recent Healthcare: No recent hospitalization, Recent doctor visit Risk Factors )( AAA Risk Stratification Abdominal Aortic Aneurysm Risk: Hypertension Risk factors reviewed )( TAD Risk Stratification Hypertension Risk factors reviewed Past Medical History Past Medical History Notes: No blood thinners Chronic pain medication contract currently in place PCP: Dr. Stevan Ferrera Past Medical History 1. Coronary artery disease. An acute lateral myocardial infarction in 2008. The patient had a PTCA to the occluded ramus. A stent placed and then a week later there was in-stent stenosis. He had a repeat PTCA. Ejection fraction at that time was 45%. Echocardiogram from February 07, 2011 showed LVH, EF 60% to 65%, unrevealing valves. Myocardial perfusion scan on September 27, 2010 showed a moderate-sized defect, fixed, mid-anterior wall without a reversible component. 2. Hypertension. 3. History of stroke. 4. Hyperlipidemia. 5. Cocaine use. 6. Left femur fracture with cindy placement. 7. Chronic lower back pain Past Surgical History Cardiac stents lower extremity surgery Family History Noncontributory Smoking History Former Smoker Social History The patient has history of cocaine abuse. He currently only uses THC. The patient has a history of incarceration Alcohol Use: Denies alcohol use Drug Use: THC Other Social History: Local resident Ambulatory Status Independent Review of Systems Musculoskeletal: Reports: Back pain, Extremity pain (general right sided pain ) , Joint pain (right knee, hip and shoulder pain ) Neurologic: Denies: Problem walking Complete sys rev & neg: except as marked. Physical Exam Initial Vital Signs Vital Signs (First) Date Time Temp Pulse Resp B/P Pulse Ox O2 Delivery O2 Flow Rate FiO2 01/27/17 23:39 36.7 87 16 170/88 99 Room Air Initial VS: Reviewed, Vital signs abnormal Head / Eyes: Atraumatic, Normocephalic, PERRL Neck: Supple, Non-tender, Full range of motion Skin: Warm, Dry, No cyanosis Psychiatric: Mood/affect normal, Behavior normal, Normal thought content General/Constitutional: Awake, Alert, No acute distress Respiratory / Chest: Atraumatic, No respiratory distress Cardiovascular: Peripheral circulation NL Abdomen: Atraumatic Back: Atraumatic, Inspection NL (No palpable abnormality ) Neurologic: Oriented X3, Speech NL, No motor deficits, No sensory deficits Lower Extremity / Pelvis / MS: Atraumatic, Neurologic intact, Vascular intact Right Hip: Positive: Antalgic gait (Favor left leg), Tenderness present... Right Knee: Positive: Tenderness present... Upper Extremity / MS: Atraumatic, Neurologic intact, Vascular intact Right Shoulder: Positive: Tenderness present... (Right trapezius), Negative: ROM reduced Re-Eval/Medical Decision Med Decision/Clinical Course 47-year-old male who presents with multiple chronic pain complaints. He has previously been on 180 Vicodin 5/325 a month until about 6 months ago. These medicines were not given him in [facility]. He states that he fell out of bed in the [facility] and hurt himself. I see no evidence of physical trauma and his range of motion of the affected shoulder and knee is good. He asked for narcotic pain medication to tide him over until his clinic appointment on Sunday and I told him that I could not give him a narcotic for this. He then quietly put on his coat and left stating that he could see this was a waste of time. Re-Evaluation/Progress : Time of Eval: 02:55 Patient Status: Condition improved Re-Evaluation/Progress Note: Patient is requesting narcotics. He is denied narcotics and states that he will leave. Pateint leaves without discharge instructions or referral to PCP. Counseled Regarding: Diagnosis, Need for follow-up, When/why to return to ED Discharge & Departure Impression: Primary Impression: Chronic pain Disposition: Home (Left without instructions) Discharge Condition All VS Reviewed: Yes Condition: Improved Additional Instructions: Patient left prior to receiving written instructions. Referrals: NOPCP (PCP) [facility] Residency Clinic Scribe Attestation Portions of this note were transcribed by Melisa Barlow. I, Dr. Bonilla personally performed the history, physical exam and medical decision-making; I reviewed and confirmed the accuracy of the information in the transcribed note. Signed by: Marybeth Avilez, 01/28/17 0257. Kale Bonilla MD January 28, 2017 01:58 MELISA BARLOW January 28, 2017 02:02
[2017-01-29] MEDS ORDERED: PRE20 PO (02:41)
== END 2017-01-28 03:06 | disposition home or self-care (01) ==
LOC: SED 23:34
DX: G89.29 Other chronic pain (principal); M25.511 Pain in right shoulder; M25.551 Pain in right hip; W06.XXXA Fall from bed, initial encounter; Y93.89 Activity, other specified; Y99.8 Other external cause status; Y92.143 Cell of prison as the place of occurrence of the external cause; I25.10 Atherosclerotic heart disease of native coronary artery without angina pectoris; I10 Essential (primary) hypertension; E78.5 Hyperlipidemia, unspecified; I25.2 Old myocardial infarction; Z87.891 Personal history of nicotine dependence; Z86.73 Personal history of transient ischemic attack (TIA), and cerebral infarction without residual deficits; Z88.2 Allergy status to sulfonamides

== ENCOUNTER 2017-01-29 01:43 | Emergency (ER) | payer MEDICAID, OTHER ==
[~2017-01-29] VITALS: Ht 175.3 cm; Wt 84.1 kg
[2017-01-29 01:47] VITALS: BP 152/88; PULSE 91; RESP 26; O2SAT 98
--- NOTE | 2017-01-29 02:16 | ED.REPORT ---
HPI-General Illness Date of Service January 29, 2017 ED Provider: Kale Bonilla MD Patient is a 47 year old male who was seen 12/28/16 in the ED for back pain who presents to the ED complaining of chronic left hip pain. He denies bladder or bowel problems. Patient describes the pain as throbbing and achy. Nursing Notes Stated Complaint: LEFT HIP PAIN Chief Complaint: Extremity Trauma Nursing Notes Reviewed: Yes Allergies: Coded Allergies: Sulfa (Sulfonamide Antibiotics) (Verified Allergy, Intermediate, Rash, 01/29) Scheduled Atorvastatin (Lipitor) 40 Mg Tablet 40 MG PO HS Clopidogrel (Clopidogrel) 75 Mg Tablet 75 MG PO DAILY Gabapentin (Gabapentin) 600 Mg Tablet 1,200 MG PO TID Prednisone (PredniSONE) 20 Mg Tablet 20 MG PO TID General Time Seen by MD: 02:04 Chief Complaint Other (left hip pain) Hx Obtained From: Patient Arrived By: Walk-in Sudden in Onset?: No Onset Occurred: More than a week ago... Location: : Hip left Quality: Aching, Throbbing Recent Healthcare: Recent doctor visit, Recent hospitalization Similar Sx Previous: Yes Past Medical History Past Medical History Notes: No blood thinners Chronic pain medication contract currently in place PCP: Dr. Stevan Ferrera Past Medical History 1. Coronary artery disease. An acute lateral myocardial infarction in 2008. The patient had a PTCA to the occluded ramus. A stent placed and then a week later there was in-stent stenosis. He had a repeat PTCA. Ejection fraction at that time was 45%. Echocardiogram from February 07, 2011 showed LVH, EF 60% to 65%, unrevealing valves. Myocardial perfusion scan on September 27, 2010 showed a moderate-sized defect, fixed, mid-anterior wall without a reversible component. 2. Hypertension. 3. History of stroke. 4. Hyperlipidemia. 5. Cocaine use. 6. Left femur fracture with cindy placement. 7. Chronic lower back pain Past Surgical History Cardiac stents lower extremity surgery Family History Noncontributory Smoking History Former Smoker Social History The patient has history of cocaine abuse. He currently only uses THC. The patient has a history of incarceration Alcohol Use: "Social" Drug Use: Cocaine (past use), THC Other Social History: Local resident Ambulatory Status Independent Review of Systems Full Review of Systems GI: Denies: Constipation, Diarrhea, Hematochezia Male: Denies Dysuria, Denies Hematuria, Denies Urinary urgency Musculoskeletal: Reports: Extremity pain (left hip) Complete sys rev & neg: except as marked. Physical Exam Vital Signs Vital Signs Date Time Temp Pulse Resp B/P Pulse Ox O2 Delivery O2 Flow Rate FiO2 01/29/17 02:55 36.4 73 18 125/79 98 Room Air 01/29/17 01:47 36.6 91 26 152/88 98 Room Air Initial VS: Reviewed, Vital signs normal General/Constitutional: Awake, Alert, No acute distress Head / Eyes: Atraumatic, Normocephalic, PERRL, EOMI Respiratory / Chest: Atraumatic, No respiratory distress Lower Extremity / Pelvis / MS: Neurologic intact, Vascular intact tenderness of the leftsided notch hip itself is nontender positive straight leg raise at 15 degrees, radiates into the left buttocks Skin: Atraumatic, Color NL, No rash, Warm, Dry Neurologic: Oriented X3, Speech NL, No motor deficits, No sensory deficits Psychiatric: Affect NL, Mood NL Re-Eval/Medical Decision Med Decision/Clinical Course 47-year-old male who was recently released from [facility] Dhe complains of increasing left-sided sciatica with pain radiating down into the buttock area. MRI from August 2014 was reviewed and showed some minor central canal stenosis but no foraminal narrowing. Source of Hx: Old records Time of Eval: 02:31 Re-Evaluation/Progress Note: Discussed plan for discharge and follow up. The patient understands and agrees to the plan for discharge. All questions were addressed. Counseled Regarding: Diagnosis, Lab results, Need for follow-up, When/why to return to ED Discharge & Departure Primary Impression: Left sided sciatica Disposition: Home Discharge Condition All VS Reviewed: Yes Condition: Stable Patient Instructions: Sciatica (ED) Additional Instructions: Take Prednisone as prescribed for the next five days. Follow up with your primary care physician this week to further discuss options. Please return to the emergency department if you develop any new or worsening symptoms including increasing pain, weakness, numbness or tingling in your leg. Referrals: [facility] Residency Clinic Scribe Attestation Portions of this note were transcribed by Elza Perrin I, Dr. Bonilla personally performed the history, physical exam and medical decision-making; I reviewed and confirmed the accuracy of the information in the transcribed note. Signed by: Marybeth Coley, 01/29/17 and 0243 copies to: [facility] Kale Bonilla MD January 29, 2017 02:16 Renetta Perrin January 29, 2017 02:24
[2017-01-29] MEDS ORDERED: HYDROmorphone 1 mg/mL Inj IM ONE (02:35)
[2017-01-29] MEDS ORDERED: predniSONE 20 mg Tablet PO ONE (02:35)
[2017-01-29] MEDS ORDERED: PRE20 PO (02:41)
[2017-01-29 02:55] VITALS: BP 125/79; PULSE 73; RESP 18; O2SAT 98
== END 2017-01-29 02:56 | disposition home or self-care (01) ==
LOC: SED 01:43
DX: M54.32 Sciatica, left side (principal); I25.10 Atherosclerotic heart disease of native coronary artery without angina pectoris; I25.2 Old myocardial infarction; I10 Essential (primary) hypertension; E78.5 Hyperlipidemia, unspecified; Z95.818 Presence of other cardiac implants and grafts; Z86.73 Personal history of transient ischemic attack (TIA), and cerebral infarction without residual deficits; Z87.828 Personal history of other (healed) physical injury and trauma; Z87.891 Personal history of nicotine dependence; Z88.2 Allergy status to sulfonamides
CPT/HCPCS: 96372; 99283; J1170

== ENCOUNTER 2017-05-12 20:37 | Emergency (ER) | payer MEDICAID, OTHER ==
[~2017-05-12] VITALS: Ht 175.3 cm; Wt 86.4 kg
[~2017-05-12 20:37] MED LIST changes: +PRE20 PO
[2017-05-12 20:50] VITALS: BP 215/126; PULSE 77; RESP 16; O2SAT 100
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
[2017-05-12 23:10] LABS: APPEARANCE,URINE CLEAR (CLEAR,HAZY); COLOR,URINE YELLOW (YELLOW); OCCULT BLOOD,URINE TRACE (NEGATIVE); PH,URINE 5.5 (5.0-8.0); UROBILINOGEN,URINE NORMAL (NORMAL)
[2017-05-13 00:42] VITALS: BP 192/123; PULSE 66; RESP 16; RESP 20; O2SAT 99
--- NOTE | 2017-05-13 07:59 | DRSVH ---
PROCEDURE: US TESTICULAR SONOGRAM WITH DOPPLER INDICATIONS: R testicle pain TECHNIQUE: Real-time scanning was performed of the scrotum and testicles, with image documentation. Color and p ulse Doppler interrogation was performed of both testicles. COMPARISON: None. FINDINGS: Right: Testicle is normal in size at 3.5 x 2.5 x 2.1 cm, and homogenous in echotexture. Epididymis is normal in overall size and morphology. The right epididymis is slightly heterogeneous. No hydrocel e or varicoceles. Overlying scrotal skin is normal in thickness. Left: Testicle is normal in size at 3.5 x 2.7 x 2.0 cm, and homogeneous in echotexture. Epididymis is normal in overall size and morphology. No varicoceles. There is a trace hydrocele. Overlying scro dash skin is normal in thickness. Doppler: Color and pulse Doppler demonstrate normal and symmetric arterial flow in both testicles. IMPRESSION: 1. Slightly increased heterogeneity to the right epididymis which may be associated with a resolving epididymitis. 2. Trace left hydrocele. These findings are concordant with the overnight interpretation. Dictated by: Angelica Voss M.D. on 05/13/2017 at 7:55 Approved by: Angelica Voss M.D. on 05/13/2017 at 7:58
== END 2017-05-13 00:44 | disposition home or self-care (01) ==
LOC: SED 20:37
DX: N50.811 Right testicular pain (principal); I15.9 Secondary hypertension, unspecified; I25.10 Atherosclerotic heart disease of native coronary artery without angina pectoris; E78.5 Hyperlipidemia, unspecified; Z87.891 Personal history of nicotine dependence; Z88.2 Allergy status to sulfonamides
CPT/HCPCS: 76870; 81000; 93975; 96372; 99284; J1885

== ENCOUNTER 2017-05-26 12:31 | Emergency (ER) | payer MEDICAID, OTHER ==
[~2017-05-26] VITALS: Ht 175.3 cm; Wt 86.4 kg
[2017-05-26 12:35] VITALS: BP 200/114; PULSE 93; RESP 18; O2SAT 100
[2017-05-26 14:12] LABS: BASOPHILS % (AUTO) 0.5 % (0-3); EOSINOPHILS % (AUTO) 1.8 % (0-5); MONOCYTES % (AUTO) 9.7 % (4-12); Mean Corpuscular Hemoglobin 29.9 pg (27.0-35.0); Mean Corpuscular Volume 86.8 fL (81-100); NEUTROPHILS % (AUTO) 72.3 % (40-74); Platelet Count 334 bil/L (150-400)
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
--- NOTE | 2017-05-26 15:58 | DRSVH ---
PROCEDURE: CT KUB ([id number]) INDICATIONS: testicle pain, hematuria TECHNIQUE: Noncontrast 5 mm thick sections acquired from the diaphragms to the symphysis. 5 mm thick coronal an d sagittal reformats were then performed. For radiation dose reduction, the following was used: aut omated exposure control, adjustment of mA and/or kV according to patient size. COMPARISON: None. FINDINGS: Image quality: Excellent. Lung bases: Lung bases are clear. Heart size is normal. Urinary system: Both kidneys are normal in size. No kidney stones. No hydronephrosis or perinephri c fat stranding. Both ureters appear non-dilated throughout their expected courses. Bladder wall th ickness is normal; no calcified bladder stones. It is mildly enlarged. Other solid organs: Liver and spleen are normal in size. Gallbladder is unremarkable. Pancreas is normal in contours. No adrenal nodules. Peritoneum and bowel: Unenhanced bowel loops demonstrate normal wall thickness and caliber. No free fluid or air. Nodes and vessels: No retroperitoneal or mesenteric adenopathy by size criteria. Aorta and inferior vena cava are normal in caliber. Abdominal wall: No ventral hernias. Pelvis: No free pelvic fluid. No inguinal hernias or adenopathy. Bones: No suspicious bony lesions. No vertebral body compression fractures. Left femoral pin fixat ion. IMPRESSION: 1. No acute intra-abdominal or pelvic process. No visualized positive hematuria. Dictated by: Larissa Whittington M.D. on 05/26/2017 at 15:53 Approved by: Larissa Whittington M.D. on 05/26/2017 at 15:56
[2017-05-26 16:06] LABS: APPEARANCE,URINE CLEAR (CLEAR,HAZY); COLOR,URINE YELLOW (YELLOW); OCCULT BLOOD,URINE LARGE (NEGATIVE); PH,URINE 5.5 (5.0-8.0); UROBILINOGEN,URINE NORMAL (NORMAL)
[2017-05-26 16:16] VITALS: BP 178/101; PULSE 74; RESP 16; O2SAT 98
[2017-05-26] MEDS ORDERED: cefTRIAXone Inj 250 MG, Lidocaine PF 1% Inj 0.9 ML in Syringe 1 EACH IM ONE (17:00)
[2017-05-26] MEDS ORDERED: LEVO500T79 PO (17:24)
[2017-05-26] MEDS ORDERED: HYDR-4003 PO (17:24)
[2017-05-26 17:38] VITALS: BP 198/113; PULSE 71; RESP 18; O2SAT 100
[2017-05-26] MEDS ORDERED: HYDROcodone-APAP 5-325 mg Tablet PO ONE (17:40)
[2017-05-26] MEDS ORDERED: levoFLOXacin 500 mg Tablet PO ONE (17:40)
[2017-05-26 17:51] VITALS: BP 198/113; PULSE 71; RESP 18; O2SAT 100
--- NOTE | 2017-05-26 17:55 | DRSVH ---
PROCEDURE: US TESTICULAR SONOGRAM WITH DOPPLER INDICATIONS: testicular pain TECHNIQUE: Real-time scanning was performed of the scrotum and testicles, with image documentation. Color and p ulse Doppler interrogation was performed of both testicles. COMPARISON: [facility], US, US TESTICULAR+DOPPLER, 05/12/2017, 23:38. FINDINGS: Right: Testicle is normal in size at 2.8 x 1.9 x 3.1 cm, and homogenous in echotexture. Epididymis demonstrates mild appearance of heterotopic echogenicity. No increased echogenicity. No hydrocele or varicoceles. Overlying scrotal skin is normal in thickness. Right epididymal cysts are noted. Left: Testicle is normal in size at 2.8 x 2.3 x 2.7 cm, and homogeneous in echotexture. Epididymis is mildly prominent with increased vascularity. It is heterogeneous in appearance. Hydrocele is noted . Overlying scrotal skin is normal in thickness. Doppler: Color and pulse Doppler demonstrate normal and symmetric arterial flow in both testicles. IMPRESSION: 1. Increased vascular flow and heterogeneous appearance of the left epididymis suggestive of epididym itis. 2. Left hydrocele. Dictated by: Larissa Whittington M.D. on 05/26/2017 at 17:52 Approved by: Larissa Whittington M.D. on 05/26/2017 at 17:54
== END 2017-05-26 17:52 | disposition home or self-care (01) ==
LOC: SED 12:31
DX: N45.1 Epididymitis (principal); M54.5 Low back pain; I11.9 Hypertensive heart disease without heart failure; I25.10 Atherosclerotic heart disease of native coronary artery without angina pectoris; E78.5 Hyperlipidemia, unspecified; I25.2 Old myocardial infarction; Z86.73 Personal history of transient ischemic attack (TIA), and cerebral infarction without residual deficits; Z95.5 Presence of coronary angioplasty implant and graft; Z87.891 Personal history of nicotine dependence; Z88.2 Allergy status to sulfonamides
CPT/HCPCS: 36415; 74176; 76870; 80053; 81000; 83690; 85025; 87491; 87591; 93975; 96372; 99285; J1885